=== PATIENT | female | born 1955 | race Caucasian/White ===

== ENCOUNTER 2017-04-16 20:57 | Inpatient (IN) | payer OTHER ==
[~2017-04-16] VITALS: Ht 170.2 cm; Wt 73.9 kg
[~2017-04-16 20:57] MED LIST: ACET325T9 PO; ACET500T33 PO; ASPI325T8 PO; BISA10SU55 RC; BUSP15TA PO; DEXT1DRO7 OU; DICL1TAB2 PO; DIVA500T2 PO; DULO60CA6 PO; FENT1PAT91 TP; FURO-69 PO; HALO2ORA PO; LORA0.5T PO; MAG30ORA2 PO; MAGN2400 PO; MELA3TAB2 PO; METH29OI TP; MINE3.5O12 OP; MULT-460 PO; NICO1PAT21 TD; NYST15CR TP; PANT40GR PO; PARO20TA3 PO; POLY15DR27 OU; PROM25SU32 RC; SERT50TA8 PO; SPIR25TA3 PO; TRAZ50TA15 PO
--- NOTE | 2017-04-16 21:25 | ED.ADGEN ---
Past History Past Medical History: Anxiety, Depression Adult General Chief Complaint Chief Complaint "... I don't know why they sent me here... ".." They say I am not being nice... " HPI HPI Patient is a 61 year old female who presents with above hx and complaints by [facility] for mental status changes.Pt. been a resident of [facility] since 09/17/14. Follows with Dr. Brizuela, and Dr. Ledezma. Pt. Accepted at [facility], for behavioral issues of refusing care, hallucination of snakes, thinks other pt. are after here, combative with staff and other patients , impossible to redirect disruptive behavior. Very Agitated and requires dosages of Ativan. Pt. Hx. of Multi Infarct dementia,CVA,s, insomnia, Bipolar , Epilepsy, HTN, Cardiac Hx., VT, Chronic pain, Falling, Anxiety, Depression, GERD, MRSA, Generalized Deconditioning, Gait disorder, Hx. of falls. Review of Systems Review of Systems Constitutional: Denies fever or chills [] Eyes: Denies change in visual acuity, redness, or eye pain [] HENT: Denies nasal congestion or sore throat [] Respiratory: Denies cough or shortness of breath [] Cardiovascular: No additional information not addressed in HPI [] GI: Denies abdominal pain, nausea, vomiting, bloody stools or diarrhea [] : Denies dysuria or hematuria [] Musculoskeletal: Denies back pain or joint pain [] Integument: Denies rash or skin lesions [] Neurologic: Denies headache, focal weakness or sensory changes [] Endocrine: Denies polyuria or polydipsia [] All other systems were reviewed and found to be within normal limits, except as documented in this note. Family History Family History Non-contributory Current Medications Current Medications Current Medications Medications (Trade) Dose Ordered Sig/Rudy Start Time Stop Time Status Last Admin Dose Admin Ceftriaxone Sodium 1 gm/ Sodium Chloride 50 ml @ 100 mls/hr 1X ONCE 04/17/17 01:30 04/17/17 03:03 DC 04/17/17 03:52 100 MLS/HR Ceftriaxone Sodium (Rocephin) 1 gm STK-MED ONCE 04/17/17 03:32 04/17/17 03:33 DC Cephalexin HCl (Keflex) 500 mg ONCE ONCE 04/17/17 02:00 04/17/17 03:04 DC Magnesium Hydroxide (Milk Of Magnesia) 2,400 mg 1X ONCE 04/17/17 01:30 04/17/17 03:03 DC Potassium Chloride (KCl Oral Soln) 40 meq 1X ONCE 04/17/17 01:30 04/17/17 03:03 DC Sodium Chloride 50 ml @ As Directed STK-MED ONCE 04/17/17 03:32 04/17/17 03:33 DC See Nursing for home meds Allergies Allergies Allergies Coded Allergies Type Severity Reaction Last Updated Verified Sulfa (Sulfonamide Antibiotics) Allergy Intermediate 06/17/15 Yes bacitracin Allergy Intermediate 06/17/15 Yes gabapentin Allergy Intermediate 06/17/15 Yes gentamicin Allergy Intermediate 06/17/15 Yes phenobarbital Allergy Intermediate 06/17/15 Yes Physical Exam Physical Exam Constitutional: no acute distress, non-toxic appearance. Argumentative HENT: Normocephalic, atraumatic, bilateral external ears normal, oropharynx moist, no oral exudates, nose normal. [] Eyes: PERRLA, EOMI, conjunctiva normal, no discharge. [] Neck: Normal range of motion, no tenderness, supple, no stridor. [] Cardiovascular:Heart rate regular rhythm, no murmur [] Lungs & Thorax: Bilateral breath sounds with apex with scattered wheezes on auscultation [] Abdomen: Bowel sounds normal, soft, no spleen or liver tenderness, no masses, no pulsatile masses. [] Large band of Ecchymosis Lt flank. Skin: Warm, dry, no erythema, no rash. Poor turgor. Back: No tenderness, no CVA tenderness. [] Extremities: No tenderness, no cyanosis, no clubbing, ROM intact, no edema. [ Arthritic changes Neurologic: Alert and oriented X 3,No gross motor or sensory function changes from her baseline.. [] Psychologic: Affect angry, judgement poor insight, confused, obvious memory issues, mood depressed, anxious Current Patient Data Lab Results Laboratory Tests Test 04/16/17 22:00 04/16/17 22:58 04/16/17 23:46 Urine Collection Type Unknown Urine Color Yellow Urine Clarity Hazy Urine pH 7.0 Urine Specific [place] 1.015 Urine Protein 30 mg/dl (NEG-TRACE) Urine Glucose (UA) Neg mg/dL (NEG) Urine Ketones (Stick) Trace mg/dL (NEG) Urine Blood Small (NEG) Urine Nitrite Neg (NEG) Urine Bilirubin Neg (NEG) Urine Urobilinogen Dipstick 2 mg/dL (0.2 mg/dL) Urine Leukocyte Esterase Large (NEG) Urine RBC 11-20 /HPF (0-2) Urine WBC >40 /HPF (0-4) Urine Squamous Epithelial Cells Mod /LPF Urine Bacteria Few /HPF (0-FEW) Urine Hyaline Casts Mod /HPF Urine Mucus Mod /LPF Urine Opiates Screen Pos (NEG) Urine Methadone Screen Neg (NEG) Urine Barbiturates Neg (NEG) Urine Phencyclidine Screen Neg (NEG) Urine Amphetamine/Methamphetamine Neg (NEG) Urine Benzodiazepines Screen Neg (NEG) Urine Cocaine Screen Neg (NEG) Urine Cannabinoids Screen Neg (NEG) Urine Ethyl Alcohol Neg (NEG) White Blood Count 5.8 x10^3/uL (4.0-11.0) Red Blood Count 4.95 x10^6/uL (3.50-5.40) Hemoglobin 13.5 g/dL (12.0-15.5) Hematocrit 41.3 % (36.0-47.0) Mean Corpuscular Volume 83 fL (79-100) Mean Corpuscular Hemoglobin 27 pg (25-35) Mean Corpuscular Hemoglobin Concent 33 g/dL (31-37) Red Cell Distribution Width 17.3 % (11.5-14.5) H Platelet Count 236 x10^3/uL (140-400) Neutrophils (%) (Auto) 52 % (31-73) Lymphocytes (%) (Auto) 35 % (24-48) Monocytes (%) (Auto) 11 % (0-9) H Eosinophils (%) (Auto) 2 % (0-3) Basophils (%) (Auto) 1 % (0-3) Neutrophils # (Auto) 3.0 x10^3uL (1.8-7.7) Lymphocytes # (Auto) 2.0 x10^3/uL (1.0-4.8) Monocytes # (Auto) 0.6 x10^3/uL (0.0-1.1) Eosinophils # (Auto) 0.1 x10^3/uL (0.0-0.7) Basophils # (Auto) 0.0 x10^3/uL (0.0-0.2) Sodium Level 141 mmol/L (136-145) Potassium Level 3.0 mmol/L (3.5-5.1) L Chloride Level 99 mmol/L (98-107) Carbon Dioxide Level 35 mmol/L (21-32) H Anion Gap 7 (6-14) Blood Urea Nitrogen 7 mg/dL (7-20) Creatinine 0.6 mg/dL (0.6-1.0) Estimated GFR (Cockcroft-Gault) 102.0 Glucose Level 81 mg/dL (70-99) Calcium Level 8.7 mg/dL (8.5-10.1) Magnesium Level 1.6 mg/dL (1.8-2.4) L Total Bilirubin 0.3 mg/dL (0.2-1.0) Direct Bilirubin 0.1 mg/dL (0.0-0.2) Aspartate Amino Transferase (AST) 14 U/L (15-37) L Alanine Aminotransferase (ALT) 11 U/L (14-59) L Alkaline Phosphatase 124 U/L (46-116) H Creatine Kinase 39 U/L (26-192) Creatine Kinase MB (Mass) 0.5 ng/mL (0.0-3.6) Creatine Kinase MB Relative Index 1.3 % (0-4) Troponin I Quantitative < 0.017 ng/mL (0-0.055) EA-Jts-K-Type Natriuretic Peptide 236 pg/mL (0-124) H Total Protein 7.1 g/dL (6.4-8.2) Albumin 2.5 g/dL (3.4-5.0) L Lipase 29 U/L (73-393) L Influenza Type A (Rapid) Negative (NEGATIVE) Influenza Type B (Rapid) Negative (NEGATIVE) Prothrombin Time 12.0 SEC (9.4-11.4) H Prothrombin Time INR 1.2 (0.9-1.1) H PTT 23 SEC (23-33) D-Dimer (Louisa) 0.37 mg/L (0.00-0.50) EKG EKG My interpretation EKG shows sinus rhythm at 77 bpm. There is left axis deviation and nonspecific contour abnormalities. No findings acute STEMI of contralateral changes.[] Radiology/Procedures Radiology/Procedures My interpretation of chest x-ray shows no acute cardiopulmonary changes. Does have degenerative joint changes. Does have blunting a left costophrenic angle. Does have clips from prior surgery in abdomen[] I interpretation CT of head shows no shift, mass, edema, bleed, or fracture. Does have findings of prior CVA with encephalomalacia of left temporal and external capsule. Does have DJD joint changes of neck. No obvious fracture or dislocation. She formal report when available. Course & Med Decision Making Course & Med Decision Making Pertinent Labs and Imaging studies reviewed. (See chart for details). Discussed presentation, testing and treatment plan with Dr. Andrews- will follow up pending labs, hypokalemia and hypomagnesium and UTI. Admit Dr. Aceves. -[facility] [] Final Impression Final Impression 1. Mental Status Change[] 2. Hypokalemia 3. Hypomagnesemia 4. Malnutrition-albumin 2.5 5. Depression history 6. History of anxiety 7. History of dementia 8. Urinary tract infection 9. History of aggressive behavior 10.Hx. Multi Infarct Dementia/ CVA's Problems: Dragon Disclaimer Dragon Disclaimer This electronic medical record was generated, in whole or in part, using a voice recognition dictation system. DELMAR STEIN MD Apr 16, 2017 21:25
[2017-04-16] MEDS ORDERED: IV NORMAL SALINE 1,000ML 1,000 ML IV SCH (21:45)
[2017-04-16] MEDS ORDERED: BALS60OI TP (22:25)
[2017-04-16] MEDS ORDERED: ASPI81TA50 PO (22:25)
[2017-04-16] MEDS ORDERED: FAMO20TA5 PO (22:25)
[2017-04-16] MEDS ORDERED: SUCR1TAB35 PO (22:25)
[2017-04-16] MEDS ORDERED: FURO-68 PO (22:25)
[2017-04-16] MEDS ORDERED: IPRA3AMP NEB (22:25)
[2017-04-16] MEDS ORDERED: [UNRECOGNIZED DRUG - CODE] LEFTEYE (22:25)
[2017-04-16] MEDS ORDERED: ARIP5TAB13 PO (22:25)
[2017-04-16] MEDS ORDERED: ERGO500027 PO (22:25)
[2017-04-16] MEDS ORDERED: AMIN887L PO (22:25)
[2017-04-16] MEDS ORDERED: FENT1PAT15 TD (22:25)
[2017-04-16] MEDS ORDERED: DIGO125T PO (22:25)
[2017-04-16] MEDS ORDERED: CLOP75TA57 PO (22:25)
[2017-04-16] MEDS ORDERED: ALBU8.5H8 INH (22:25)
[2017-04-16] MEDS ORDERED: HYDR25CA75 PO (22:25)
[2017-04-16] MEDS ORDERED: OXYC10TA PO (22:25)
[2017-04-16] MEDS ORDERED: SENN-79 PO (22:25)
[2017-04-16] MEDS ORDERED: MICO14CR TP (22:25)
[2017-04-16] MEDS ORDERED: OXYC5TAB95 PO (22:25)
[2017-04-16] MEDS ORDERED: METO-239 PO (22:25)
[2017-04-16] MEDS ORDERED: ESCITALOPRAM OX10 MG PO (22:25)
[2017-04-16] MEDS ORDERED: MAGN400O7 PO (22:25)
[2017-04-16] MEDS ORDERED: ZOLP12.52 PO (22:25)
[2017-04-16] MEDS ORDERED: POTA20TA4 PO (22:25)
[2017-04-16] MEDS ORDERED: OXYB5TAB7 PO (22:25)
--- NOTE | 2017-04-16 22:37 | EKG ---
[address] [address] Test Date: 2017-04-16 Test Time: 22:34:05 Pat Name: DEVORAH SIMMS Department: Room: Gender: F Administrative Receptionist: MICHELLE : [id number] Requested By: DELMAR STEIN Order Number: [id number] Reading MD: Measurements Intervals [place] Rate: 77 P: 37 NM: 150 QRS: -54 QRSD: 86 T: 44 QT: 406 QTc: 461 Interpretive Statements SINUS RHYTHM ABNORMAL LEFT AXIS DEVIATION QRS(T) CONTOUR ABNORMALITY CONSISTENT WITH INFERIOR INFARCT PROBABLY OLD ABNORMAL ECG RI6.01 Compared to ECG 06/17/2015 06:24:49 No significant changes
[2017-04-16 22:38] LABS: AMPHETAMINE/METHAMPHETAMINE NEG (NEG); BARBITURATES NEG (NEG); BENZODIAZEPINES NEG (NEG); CANNABINOIDS NEG (NEG); COCAINE NEG (NEG); METHADONE NEG (NEG); OPIATES POS (NEG); PHENCYCLIDINE NEG (NEG)
[2017-04-16 22:54] LABS: CLARITY,URINE HAZY; COLOR,URINE YELLOW
[2017-04-16 22:55] LABS: BACTERIA,URINE FEW /HPF (0-FEW); BILIRUBIN,URINE NEG (NEG); GLUCOSE,URINE NEG (NEG); NITRITE,URINE NEG (NEG); SQUAMOUS EPITHELIAL CELL,UR MOD /LPF; UROBILINOGEN,URINE 2 mg/dL (0.2 mg/dL); WBC,URINE >40 /HPF (0-4)
[2017-04-16 22:56] LABS: HYALINE CASTS, URINE MOD /HPF
[2017-04-16 23:26] LABS: BASO % 1 % (0-3); EOS # 0.1 x10^3/uL (0.0-0.7); EOS % 2 % (0-3); HEMATOCRIT 41.3 % (36.0-47.0); HEMOGLOBIN 13.5 g/dL (12.0-15.5); LYMPH % 35 % (24-48); MEAN CORPUSCULAR HEMOGLOBIN 27 pg (25-35); MEAN CORPUSCULAR HGB CONC 33 g/dL (31-37); MEAN CORPUSCULAR VOLUME 83 fL (79-100); MONO # 0.6 x10^3/uL (0.0-1.1); MONO % 11 % (0-9); NEUT % 52 % (31-73); PLATELET COUNT 236 x10^3/uL (140-400); RED BLOOD COUNT 4.95 x10^6/uL (3.50-5.40); RED CELL DISTRIBUTION WIDTH 17.3 % (11.5-14.5); WHITE BLOOD COUNT 5.8 x10^3/uL (4.0-11.0)
[2017-04-16 23:35] LABS: INFLUENZA A PATIENT NEGATIVE (NEGATIVE); INFLUENZA B PATIENT NEGATIVE (NEGATIVE)
[2017-04-16 23:43] LABS: ALBUMIN 2.5 g/dL (3.4-5.0); CALCIUM 8.7 mg/dL (8.5-10.1); CREATININE 0.6 mg/dL (0.6-1.0); DIRECT BILIRUBIN 0.1 mg/dL (0.0-0.2); MAGNESIUM 1.6 mg/dL (1.8-2.4); TOTAL BILIRUBIN 0.3 mg/dL (0.2-1.0); TOTAL PROTEIN 7.1 g/dL (6.4-8.2)
--- NOTE | 2017-04-16 23:53 | RAD ---
CT HEAD AND CERVICAL SPINE WO dated 04/16/2017 10:07 PM Indication:Falling Comparison: June 17, 2015 CT head. Technique: One or more of the following individualized dose reduction techniques were utilized for this examination: 1. Automated exposure control 2. Adjustment of the mA and/or kV according to patient size 3. Use of iterative reconstruction technique Findings CT head: Again seen is encephalomalacia in the left temporal lobe. There is a lucency in the region of the left external capsule. Prominence of the sulci extends superiorly in the left sylvian fissure. These findings are unchanged. There is been a prior craniotomy the left frontal and temporal region . No evidence of acute infarction or hemorrhage is seen. There is mild lucency in the deep cerebral white matter most consistent with chronic ischemic change. There is unchanged prominence of the left lateral ventricle from atrophy. The basal cisterns are well maintained. There is no shift of the midline structures. Bone windows show no acute fracture. IMPRESSION CT head: No acute intracranial abnormality is seen. There is unchanged encephalomalacia in the left temporal lobe and region of the left external capsule. There are postoperative changes in this area. Findings CT of the cervical spine: No cervical spine fracture or subluxation is seen. There degenerative changes at C5-6 with mild posterior osteophyte formation and spurs arising from the right uncovertebral joint. These are causing right foraminal stenosis. The other levels are unremarkable. The paraspinous soft tissues are normal. IMPRESSION: No cervical spine fracture or subluxation seen. There are mild degenerative changes. Electronically signed by: Melvina Ramirez MD (04/16/2017 11:50 PM) [facility] [place] [facility] [place]
[2017-04-17] MEDS ORDERED: POTASSIUM CHLORIDE 20 MEQ/15 ML ORAL LIQUID. PO ONE ×2 (01:15→01:30)
[2017-04-17] MEDS ORDERED: MAGNESIUM HYDROXIDE 2,400 MG/30 ML ORAL.SUSP. PO ONE ×2 (01:15→01:30)
[2017-04-17] MEDS ORDERED: CEPHALEXIN 250 MG CAPSULE PO ONE (02:00)
[2017-04-17] MEDS ORDERED: IV NORMAL SALINE 50ML 50 ML ONE (03:32)
[2017-04-17] MEDS ORDERED: cefTRIAXone SODIUM 1 GM VIAL IV ONE (03:32)
[2017-04-17 06:03] VITALS: BP 96/55
[2017-04-17 06:22] LABS: VAL ACID 70 mcg/mL (50-100)
[2017-04-17] MEDS ORDERED: LORazepam 0.5 MG TABLET PO PRN (07:15)
[2017-04-17] MEDS ORDERED: MAGNESIUM HYDROXIDE 2,400 MG/30 ML ORAL.SUSP. PO PRN (07:45)
[2017-04-17] MEDS ORDERED: MICONAZOLE NITRATE 2% TOPICAL CREAM 14GM TUBE. TP PRN (07:45)
[2017-04-17] MEDS ORDERED: fentaNYL 25MCG/HR 1 PATCH PATCH TD SCH (07:45)
[2017-04-17] MEDS ORDERED: FUROSEMIDE 40 MG TABLET PO PRN (07:45)
[2017-04-17] MEDS ORDERED: ACETAMINOPHEN 325 MG TABLET PO PRN (07:45)
[2017-04-17] MEDS ORDERED: IPRATRPIUM/ALBUTEROL 0.5/2.5MG 3 ML NEBU. NEB PRN (07:45)
[2017-04-17] MEDS ORDERED: POTASSIUM CHLORIDE 20 MEQ TABLET.ER. PO SCH (08:00)
[2017-04-17] MEDS ORDERED: POLYVINYL ALCOHOL 1.4% OPHTH SOLUTION 15ML BOTTLE. OS PRN ×2 (08:00→14:31)
[2017-04-17] MEDS ORDERED: ALBUTEROL SULFATE 2.5 MG/3 ML NEBU. NEB PRN (08:00)
--- NOTE | 2017-04-17 08:34 | RAD ---
Pelvis one view. History: Fall Supine view was taken of the pelvis. There is no acute pelvic fracture. Hips appear unremarkable without definite fracture. There is mild degenerative change in the lower lumbar spine. Impression: 1. No pelvic fracture noted.
--- NOTE | 2017-04-17 08:35 | RAD ---
AP chest History: Fall AP view was taken of the chest. There is linear atelectasis in the left lung base. Heart is normal in size. There is thoracolumbar scoliosis. There are no other infiltrates. Impression: 1. Left base linear atelectasis.
[2017-04-17] MEDS ORDERED: NICOTINE 14MG PATCH. TD SCH (09:00)
[2017-04-17] MEDS: oxyCODONE IR 5 MG TABLET PO SCH ×4 (09:00→21:49)
[2017-04-17] MEDS: SUCRALFATE 1 GM TABLET. PO SCH ×5 (09:00→21:46)
[2017-04-17] MEDS: METOPROLOL SUCC 24HR ER 25 MG TAB.ER.24H. PO SCH (09:00)
[2017-04-17 10:35] VITALS: BP 96/63
--- NOTE | 2017-04-17 12:30 | HP ---
ADMIT DATE: 04/17/2017 REASON FOR ADMISSION TO SENIOR BEHAVIORAL UNIT: This is a 61-year-old female who came from [facility] where she had been on hospice. The nurses' notes report that she had increased behaviors seeing snakes, cats, and bugs in her room. Keep trying to stand, not wanting to use the wheelchair and having delusions. PAST MEDICAL HISTORY: Chronic pain, chronic use of narcotics, muscle weakness, major depressive disorder, epilepsy, primary cerebral infarct, anxiety, history of a brain tumor which was removed 10 years ago. Other problems also include insomnia, vitamin D deficiency, bipolar disorder. She has a history of a cardiac arrest in 12/2016, ventricular tachycardia in 12/2016, paroxysmal atrial fibrillation, dilated cardiomyopathy, acute respiratory failure, also has a history of pneumonia, irritable bowel, spinal stenosis, neuropathy, overactive bladder, COPD. ALLERGIES: SULFA, BACITRACIN, GABAPENTIN, GENTAMICIN, PHENOBARBITAL. MEDICATIONS: Reviewed. Of note, the patient is on a large amount of narcotics including Ambien, lorazepam p.r.n., scheduled oxycodone p.r.n. and fentanyl patch. SOCIAL HISTORY: Positive tobacco. Resides in a nursing facility. REVIEW OF SYSTEMS: The patient was requesting pain medication. She has been up all night in the Emergency Room and is in bed. OBJECTIVE: VITAL SIGNS: Blood pressure 96/63, pulse 86, pulse ox was 85% this morning on 2 liters, now 93% on 2 liters, so definitely needs oxygen during the day. GENERAL: Her hair is thinning. Color is pale. She is in a debilitated state. CHEST: Her lungs were clear. CARDIOVASCULAR: Regular rhythm and rate. ABDOMEN: Soft, nontender. EXTREMITIES: Trace edema. Could not assess the rest of neurologic status were her gait. LABORATORY DATA: Iron is deficient; magnesium was 1.6 ____ liver function tests, TSH was normal. B12, vitamin D is pending. Potassium was 3. ASSESSMENT: 1. A 61-year-old with a reported increased behaviors and delusions and hallucinations with no history of dementia. 2. Major depressive disorder. 3. Polypharmacy with multiple sensorium altering medications including Ambien, oxycodone with fentanyl, and lorazepam. 4. Iron deficiency 5. Previous hospice status. 6. Hypokalemia. 7. Severe Protein-calorie malnutrition. 8. Urinary tract infection. 9. Chronic hypoxemic respiratory failure PLAN: Received a dose of ceftriaxone in the Emergency Room. We will replace her iron. The patient is a DNR. Needs daily oxygen during the day. Avoid excessive pain medications and excessive oversedating the patient. ART BAJWA DO DR: GREGORY/brandon JOB#: [id number] / [id number]
[2017-04-17] MEDS: MULTIVITAMIN with MINERAL TABLET. PO SCH (13:09)
[2017-04-17] MEDS: CEPHALEXIN 250 MG CAPSULE PO SCH ×3 (13:09→21:46)
[2017-04-17] MEDS: FAMOTIDINE 20 MG TABLET PO SCH ×2 (13:09→21:46)
[2017-04-17] MEDS: ASPIRIN ENTERIC COATED 81 MG TABLET.DR. PO SCH (13:09)
[2017-04-17] MEDS: MAGNESIUM OXIDE 400 MG TABLET PO SCH (13:09)
[2017-04-17] MEDS: CLOPIDOGREL BISULFATE 75 MG TABLET PO SCH (13:09)
[2017-04-17] MEDS: ARIPiprazole 5 MG TABLET PO SCH (13:10)
[2017-04-17] MEDS: OXYBUTYNIN CHLORIDE 5 MG TABLET PO SCH (13:10)
[2017-04-17] MEDS: CITALOPRAM 20 MG TABLET. PO SCH (13:10)
[2017-04-17] MEDS: NICOTINE 14MG PATCH. TD SCH (13:11)
[2017-04-17] MEDS: DIGOXIN 125 MCG TABLET PO SCH (13:12)
[2017-04-17] MEDS: POTASSIUM CHLORIDE 20 MEQ TABLET.ER. PO SCH (13:14)
[2017-04-17 15:09] LABS: T3 TOTAL 112 ng/dL (71-180); THYROXINE 7.2 ug/dL (4.5-12.0)
[2017-04-17 16:11] VITALS: BP 103/68
[2017-04-17 16:21] LABS: HEMOGLOBIN A1C 4.8 % (4.8-5.6)
--- NOTE | 2017-04-17 21:02 | PDOC ---
Exam Note: Michi Note: Please also refer to the separate dictated note~for this date of service dictated separately.~Patient seen individually. Discussed the patient with Nursing staff reviewed the chart.~Reviewed interim history and current functioning. Reviewed vital signs,~Labs/ Radiology~and current medications noted below. Continue current treatment with the changes noted in the dictated addendum note Assessment: Vital Signs: Vital Signs Date Time Temp Pulse Resp B/P (MAP) Pulse Ox O2 Delivery O2 Flow Rate FiO2 04/17/17 17:32 18 91 04/17/17 16:11 98.2 88 103/68 (80) 2.0 04/17/17 10:35 Nasal Cannula I&O Intake and Output 04/17/17 07:00 Intake Total 1050 ml Balance 1050 ml IV Total 1050 ml Labs: Laboratory Tests Test 04/16/17 22:00 04/16/17 22:58 04/16/17 23:46 Urine Collection Type Unknown Urine Color Yellow Urine Clarity Hazy Urine pH 7.0 Urine Specific [place] 1.015 Urine Protein 30 mg/dl (NEG-TRACE) Urine Glucose (UA) Neg mg/dL (NEG) Urine Ketones (Stick) Trace mg/dL (NEG) Urine Blood Small (NEG) Urine Nitrite Neg (NEG) Urine Bilirubin Neg (NEG) Urine Urobilinogen Dipstick 2 mg/dL (0.2 mg/dL) Urine Leukocyte Esterase Large (NEG) Urine RBC 11-20 /HPF (0-2) Urine WBC >40 /HPF (0-4) Urine Squamous Epithelial Cells Mod /LPF Urine Bacteria Few /HPF (0-FEW) Urine Hyaline Casts Mod /HPF Urine Mucus Mod /LPF Urine Opiates Screen Pos (NEG) Urine Methadone Screen Neg (NEG) Urine Barbiturates Neg (NEG) Urine Phencyclidine Screen Neg (NEG) Urine Amphetamine/Methamphetamine Neg (NEG) Urine Benzodiazepines Screen Neg (NEG) Urine Cocaine Screen Neg (NEG) Urine Cannabinoids Screen Neg (NEG) Urine Ethyl Alcohol Neg (NEG) White Blood Count 5.8 x10^3/uL (4.0-11.0) Red Blood Count 4.95 x10^6/uL (3.50-5.40) Hemoglobin 13.5 g/dL (12.0-15.5) Hematocrit 41.3 % (36.0-47.0) Mean Corpuscular Volume 83 fL (79-100) Mean Corpuscular Hemoglobin 27 pg (25-35) Mean Corpuscular Hemoglobin Concent 33 g/dL (31-37) Red Cell Distribution Width 17.3 % (11.5-14.5) H Platelet Count 236 x10^3/uL (140-400) Neutrophils (%) (Auto) 52 % (31-73) Lymphocytes (%) (Auto) 35 % (24-48) Monocytes (%) (Auto) 11 % (0-9) H Eosinophils (%) (Auto) 2 % (0-3) Basophils (%) (Auto) 1 % (0-3) Neutrophils # (Auto) 3.0 x10^3uL (1.8-7.7) Lymphocytes # (Auto) 2.0 x10^3/uL (1.0-4.8) Monocytes # (Auto) 0.6 x10^3/uL (0.0-1.1) Eosinophils # (Auto) 0.1 x10^3/uL (0.0-0.7) Basophils # (Auto) 0.0 x10^3/uL (0.0-0.2) Sodium Level 141 mmol/L (136-145) Potassium Level 3.0 mmol/L (3.5-5.1) L Chloride Level 99 mmol/L (98-107) Carbon Dioxide Level 35 mmol/L (21-32) H Anion Gap 7 (6-14) Blood Urea Nitrogen 7 mg/dL (7-20) Creatinine 0.6 mg/dL (0.6-1.0) Estimated GFR (Cockcroft-Gault) 102.0 Glucose Level 81 mg/dL (70-99) Hemoglobin A1c 4.8 % (4.8-5.6) Calcium Level 8.7 mg/dL (8.5-10.1) Magnesium Level 1.6 mg/dL (1.8-2.4) L Iron Level 38 ug/dL (50-170) L Total Iron Binding Capacity 306 ug/dL (250-450) Iron Saturation 12 % (15-34) L Total Bilirubin 0.3 mg/dL (0.2-1.0) Direct Bilirubin 0.1 mg/dL (0.0-0.2) Aspartate Amino Transferase (AST) 14 U/L (15-37) L Alanine Aminotransferase (ALT) 11 U/L (14-59) L Alkaline Phosphatase 124 U/L (46-116) H Creatine Kinase 39 U/L (26-192) Creatine Kinase MB (Mass) 0.5 ng/mL (0.0-3.6) Creatine Kinase MB Relative Index 1.3 % (0-4) Troponin I Quantitative < 0.017 ng/mL (0-0.055) KZ-[id number]-H-Type Natriuretic Peptide 236 pg/mL (0-124) H Total Protein 7.1 g/dL (6.4-8.2) Albumin 2.5 g/dL (3.4-5.0) L Triglycerides Level 154 mg/dL (0-150) H Cholesterol Level 161 mg/dL (0-200) LDL Cholesterol, Calculated 78 mg/dL (0-100) VLDL Cholesterol, Calculated 30 mg/dL (0-40) Non-HDL Cholesterol Calculated 108 mg/dL (0-129) HDL Cholesterol 53 mg/dL (40-60) Cholesterol/HDL Ratio 3.0 Lipase 29 U/L (73-393) L Thyroid Stimulating Hormone (TSH) 3.308 uIU/mL (0.358-3.740) Thyroxine (T4) 7.2 ug/dL (4.5-12.0) Total Triiodothyronine (TT3) 112 ng/dL (71-180) Valproic Acid Level 70 mcg/mL (50-100) Valproic Acid Last Dose Date Unknown Valproic Acid Last Dose Time Unknown Rapid Plasma Reagin Pending Influenza Type A (Rapid) Negative (NEGATIVE) Influenza Type B (Rapid) Negative (NEGATIVE) Prothrombin Time 12.0 SEC (9.4-11.4) H Prothrombin Time INR 1.2 (0.9-1.1) H PTT 23 SEC (23-33) D-Dimer (Louisa) 0.37 mg/L (0.00-0.50) Current Medications: Meds: Current Medications Sodium Chloride 1,000 ml @ 1,000 mls/hr Q1H IV Last administered on 04/16/17at 03:52; Start 04/16/17 at 21:45; Stop 04/16/17 at 22:44; Status DC Potassium Chloride (KCl Oral Soln) 40 meq 1X ONCE PO Last administered on 04/17at 03:52; Start 3/11/18 at 01:15; Stop 04/17/17 at 03:03; Status DC Magnesium Hydroxide (Milk Of Magnesia) 2,400 mg 1X ONCE PO Last administered on 04/17/17at 03:52; Start 04/17/17 at 01:15; Stop 04/17/17 at 03:03; Status DC Ceftriaxone Sodium 1 gm/ Sodium Chloride 50 ml @ 100 mls/hr 1X ONCE IV Last administered on 04/17/17at 03:52; Start 04/17/17 at 01:30; Stop 04/17/17 at 03:03 ; Status DC Magnesium Hydroxide (Milk Of Magnesia) 2,400 mg 1X ONCE PO ; Start 04/17/17 at 01:30; Stop 04/17/17 at 03:03; Status DC Potassium Chloride (KCl Oral Soln) 40 meq 1X ONCE PO ; Start 04/17/17 at 01:30 ; Stop 04/17/17 at 03:03; Status DC Cephalexin HCl (Keflex) 500 mg ONCE ONCE PO ; Start 04/17/17 at 02:00; Stop 12/25 at 03:04; Status DC Sodium Chloride 50 ml @ As Directed STK-MED ONCE .ROUTE ; Start 04/17/17 at 03: 32; Stop 04/17/17 at 03:33; Status DC Ceftriaxone Sodium (Rocephin) 1 gm STK-MED ONCE IV ; Start 04/17/17 at 03:32; Stop 04/17/17 at 03:33; Status DC Nicotine (Nicoderm Cq 14mg) 1 patch DAILY TD ; Start 04/17/17 at 09:00; Stop 12/25 at 09:00; Status DC Aripiprazole (Abilify) 5 mg DAILY PO Last administered on 04/17/17at 13:10; Start 04/17/17 at 09:00 Hydroxyzine Pamoate (Vistaril) 25 mg QHS PO ; Start 04/17/17 at 21:00 Lorazepam (Ativan) 0.5 mg PRN Q12HR PRN PO ANXIETY / AGITATION; Start 04/17/17 at 07:15 Divalproex Sodium (Depakote Er) 1,000 mg QHS PO ; Start 04/17/17 at 21:00 Citalopram Hydrobromide (CeleXA) 20 mg DAILY PO Last administered on 04/17/17at 13:10; Start 04/17/17 at 09:00 Zolpidem Tartrate (Ambien) 10 mg PRN QHS PRN PO INSOMNIA; Start 04/17/17 at 07: 30 Nicotine (Nicoderm Cq 14mg) 1 patch DAILY TD Last administered on 04/17/17at 13: 11; Start 04/17/17 at 09:00 Cephalexin HCl (Keflex) 500 mg TID PO Last administered on 04/17/17at 15:29; Start 04/17/17 at 09:00; Stop 04/22/17 at 08:59 Potassium Chloride (Klor-Con) 20 meq DAILYWBKFT PO ; Start 04/17/17 at 08:00; Status UNV Magnesium Oxide (Magnesium Oxide) 400 mg DAILY PO Last administered on at 13:09; Start 04/17/17 at 09:00 Acetaminophen (Tylenol) 325 mg PRN Q4HRS PRN PO PAIN / TEMP; Start 04/17/17 at 07:45 Albuterol Sulfate (Ventolin) 2.5 mg PRN Q6HRS PRN NEB SHORTNESS OF BREATH; Start 04/17/17 at 08:00 Aspirin (Aspirin Enteric Coated) 81 mg DAILY PO Last administered on 04/17/17at 13:09; Start 04/17/17 at 09:00 Clopidogrel Bisulfate (Plavix) 75 mg DAILY PO Last administered on 04/17/17at 13 :09; Start 04/17/17 at 09:00 Digoxin (Lanoxin) 125 mcg DAILY PO Last administered on 04/17/17at 13:12; Start 04/17/17 at 09:00 Famotidine (Pepcid) 20 mg BID PO Last administered on 04/17/17at 13:09; Start at 09:00 Fentanyl (Duragesic 25mcg/ Hr) 1 patch Q72H TD ; Start 04/17/17 at 07:45; Status Cancel Furosemide (Lasix) 40 mg PRN DAILY PRN PO Weight gain >2# in 24 hrs ; Start 12/25 at 07:45 Albuterol/ Ipratropium (Duoneb) 3 ml PRN Q6HRS PRN NEB Asthma; Start 04/17/17 at 07:45 Magnesium Hydroxide (Milk Of Magnesia) 2,400 mg PRN Q24HRS PRN PO CONSTIPATION ; Start 04/17/17 at 07:45 Metoprolol Succinate (Toprol Xl) 12.5 mg DAILY PO ; Start 04/17/17 at 09:00 Miconazole Nitrate (Monistat-Derm) 1 silver PRN QID PRN TP Excoriation to Buttocks /Groin; Start 04/17/17 at 07:45 Oxybutynin Chloride (Ditropan) 5 mg DAILY PO Last administered on 04/17/17at 13: 10; Start 04/17/17 at 09:00 Oxycodone HCl (Roxicodone) 5 mg QID PO Last administered on 04/17/17at 17:32; Start 04/17/17 at 09:00 Potassium Chloride (Klor-Con) 20 meq DAILY PO Last administered on 04/17/17at 13 :14; Start 04/17/17 at 09:00 Sennosides (Senna) 17.2 mg QHS PO ; Start 04/17/17 at 21:00 Sucralfate (Carafate) 1 gm QID PO Last administered on 04/17/17at 17:33; Start 04/17/17 at 09:00 Artificial Tears (Artificial Tears) 1 drop PRN QID PRN OS DRY EYE; Start at 08:00; Stop 04/17/17 at 14:31; Status DC Vitamin D (Vitamin D3) 50,000 unit QTH PO ; Start 04/21/17 at 16:00 Multivitamins/ Calcium (Thera-M Plus) 1 tab DAILY PO Last administered on at 13:09; Start 04/17/17 at 09:00 Artificial Tears (Artificial Tears) 1 drop PRN QID PRN OS DRY EYE Last administered on 04/17/17at 17:33; Start 04/17/17 at 14:31 Fentanyl (Duragesic 25mcg/ Hr) 1 patch Q72H TD ; Start 04/18/17 at 09:00 Active Scripts Active Reported Senna (Sennosides) 8.6 Mg Tablet 17.2 Mg PO QHS Pro-Stat Liquid (Amino Acids/Protein Hydrolys) 887 Ml Liquid 60 Ml PO BID Klor-Con M20 (Potassium Chloride) 20 Meq Tab.er.prt 20 Meq PO DAILY Plavix (Clopidogrel Bisulfate) 75 Mg Tablet 75 Mg PO DAILY Oxycodone Hcl 5 Mg Tablet 5 Mg PO QID Oxycodone Hcl 10 Mg Tablet 10 Mg PO PRN Q4HRS PRN Oxybutynin Chloride 5 Mg Tablet 5 Mg PO DAILY Milk Of Magnesia (Magnesium Hydroxide) 400 Mg/5 Ml Oral.susp 2,400 Mg PO PRN Q24HRS PRN Antifungal Cream (Miconazole Nitrate) 14 Gm Cream..g. 1 Silver TP PRN QID PRN Metoprolol Succinate ( Xl ) (Metoprolol Succinate) 25 Mg Tab.er.24h 12.5 Mg PO DAILY Lasix (Furosemide) 40 Mg Tablet 40 Mg PO PRN DAILY PRN Hydroxyzine Pamoate 25 Mg Capsule 25 Mg PO QHS FENTANYL 25mcg/hr (Fentanyl) 1 Each Patch.td72 1 Patch TD Q72H Famotidine 20 Mg Tablet 20 Mg PO BID Escitalopram Oxalate 10 Mg Tablet 10 Mg PO DAILY Vitamin D2 (Ergocalciferol (Vitamin D2)) 50,000 Unit Capsule 50,000 Unit PO QTH Duoneb 0.5-3(2.5) Mg/3 Ml (Albuterol/Ipratropium) 3 Ml Ampul.neb 3 Ml NEB PRN Q6HRS PRN Digoxin 125 Mcg Tablet 125 Mcg PO DAILY Restore Tears (Carboxymethylcellulose Sodium) 30 Ml Drops 1 Drop LEFTEYE PRN QID PRN Carafate (Sucralfate) 1 Gm Tablet 1 Gm PO QID Venelex Ointment (Balsam Adal/[place] Oil) 60 Gm Oint...g. 1 Silver TP PRN QID PRN Aspir-Low (Aspirin) 81 Mg Tablet.dr 81 Mg PO DAILY Abilify (Aripiprazole) 5 Mg Tablet 5 Mg PO DAILY Ambien Cr (Zolpidem Tartrate) 12.5 Mg Tab.mphase 12.5 Mg PO QHS PRN Proair Hfa Inhaler (Albuterol Sulfate) 8.5 Gm Hfa.aer.ad 2 Puff INH PRN Q6HRS PRN Tylenol (Acetaminophen) 325 Mg Tablet 325 Mg PO PRN Q4HRS PRN MDD 3000mg Lorazepam 0.5 Mg Tablet 0.5 Mg PO PRN Q12HR PRN Multiple Vitamin (Multivitamin With Minerals) 1 Each Tablet 1 Tab PO DAILY Depakote (Divalproex Sodium) 500 Mg Tablet. 1,000 Mg PO QHS I have reviewed the current psychotropics carefully including drug interactions. Risk benefit ratio favors no change other than as noted in my dictated progress note. Diagnosis: Problems: (1) Major depression (2) Anxiety disorder (3) Psychotic depression (4) Major depressive disorder, recurrent episode (5) Mild cognitive impairment LEON PARHAM MD Apr 17, 2017 21:01
[2017-04-17] MEDS: DIVALPROEX ER 500 MG TAB.ER.24H PO SCH (21:49)
[2017-04-17] MEDS: SENNOSIDES 8.6 MG TABLET PO SCH (21:49)
[2017-04-17] MEDS: hydrOXYzine PAMOATE 25 MG CAPSULE PO SCH (21:49)
[2017-04-18] MEDS: ZOLPIDEM 5 MG TABLET. PO PRN ×2 (00:44→22:29)
[2017-04-18 05:42] VITALS: BP 94/63
[2017-04-18] MEDS: METOPROLOL SUCC 24HR ER 25 MG TAB.ER.24H. PO SCH (09:00)
[2017-04-18] MEDS: MULTIVITAMIN with MINERAL TABLET. PO SCH (09:26)
[2017-04-18] MEDS: OXYBUTYNIN CHLORIDE 5 MG TABLET PO SCH (09:26)
[2017-04-18] MEDS: MAGNESIUM OXIDE 400 MG TABLET PO SCH (09:26)
[2017-04-18] MEDS: ARIPiprazole 5 MG TABLET PO SCH (09:26)
[2017-04-18] MEDS: DIGOXIN 125 MCG TABLET PO SCH (09:26)
[2017-04-18] MEDS: POTASSIUM CHLORIDE 20 MEQ TABLET.ER. PO SCH (09:27)
[2017-04-18] MEDS: ASPIRIN ENTERIC COATED 81 MG TABLET.DR. PO SCH (09:27)
[2017-04-18] MEDS: CLOPIDOGREL BISULFATE 75 MG TABLET PO SCH (09:27)
[2017-04-18] MEDS: SUCRALFATE 1 GM TABLET. PO SCH ×6 (09:27→20:54)
[2017-04-18] MEDS: CEPHALEXIN 250 MG CAPSULE PO SCH ×3 (09:27→20:33)
[2017-04-18] MEDS: CITALOPRAM 20 MG TABLET. PO SCH (09:27)
[2017-04-18] MEDS: FAMOTIDINE 20 MG TABLET PO SCH ×3 (09:27→20:54)
[2017-04-18] MEDS: NICOTINE 14MG PATCH. TD SCH (09:28)
[2017-04-18] MEDS: oxyCODONE IR 5 MG TABLET PO SCH ×4 (09:30→20:35)
[2017-04-18] MEDS: fentaNYL 25MCG/HR 1 PATCH PATCH TD SCH (09:31)
[2017-04-18 16:04] VITALS: BP 106/74
--- NOTE | 2017-04-18 18:32 | HP ---
ADMIT DATE: 04/17/2017 This is late entry, 04/17/2017, covers the elements not covered in my initial note, 04/17/2017. SUBJECTIVE: I met with the patient evening of 04/17/2017. Discussed with the nursing staff several times prior to the patient's admission and since admission to gather referral information from [facility] and her primary care physician, Dr. Ray Brizuela and also with the nursing staff the evening of 04/17/2017. Reviewed current and past records. IDENTIFYING DATA: The patient is a 61-year-old female referred to us from [facility] by Dr. Ray Brizuela. Her primary care physician on account of worsening symptoms of depression, refusing cares, having active hallucinations of snakes, etc. She thinks her peers are going through her stuff. She has been paranoid, combative, has a prior diagnosis of bipolar disorder, has been increasingly depressed, psychotic, and also has a diagnosis of personality disorder. She has failed outpatient psychiatric interventions resulting in this referral. CHIEF COMPLAINT: "Get close here. I cannot talk very loud." The patient is quite paranoid, suspicious, and had to sit very close to her because she felt people were trying to over hear what she was saying. HISTORY OF PRESENT ILLNESS: The patient has a history of bipolar disorder with periods of elation, racing thoughts alternating with being depressed. She has been increasingly depressed in the recent past, quite psychotic, as noted above, hallucinating about snakes and bugs in her bed, thought the oxygen tubing was a snake. She is delusional, thinks someone stole her wallet, combative with the staff. "I will take your ass if you do not get the hell out of my room." No suicidal or homicidal ideation. PAST PSYCHIATRIC HISTORY: As above. MEDICAL HISTORY: UA on 04/16/2017, reflex to a culture, received Rocephin in the ER. CODE STATUS: DNR. ALLERGIES: SULFA, BACTRIM, NEURONTIN, DILANTIN, Gentamicin, PHENOBARBITAL. 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 DIET: Regular. CURRENT PSYCHOTROPICS: Abilify 5 mg a day, Depakote delayed release 1000 mg at bedtime for seizures and mood disorder, Lexapro 10 mg a day, hydroxyzine 25 mg at bedtime, Ambien CR 12.5 mg at bedtime, Ativan p.r.n. FAMILY HISTORY: Noncontributory. SOCIAL HISTORY: No alcohol, drug abuse, physical, sexual or elder abuse history is noted. Not known to be a perpetrator. REVIEW OF SYSTEMS: Ambulation impaired, in wheelchair. No CV, , pulmonary, eye, ENT system symptoms on review. MENTAL STATUS EXAMINATION: Reasonably oriented. Speech, low in volume, often responses monosyllabic. Abstraction fair, computation impaired, language function intact, attention span short. Mood and affect somewhat labile, quite paranoid, psychotic. No active suicidal or homicidal ideation. Attention span short. Intellect average. Insight limited, judgment marginal. IMPRESSION: Bipolar 1 disorder, depressed with psychotic features; major depressive disorder with psychotic features; anxiety disorder, unspecified; impulse control disorder, unspecified. Rest as above. PLAN: Admit to Geropsychiatry Unit at [facility]. I will see the patient daily individually from a psychiatric standpoint, medical followup per Dr. Andrews/Dr. Lujan. Check a valproic acid level, adjust Depakote to reach a therapeutic level. We may need to add Wellbutrin or Cymbalta as an antidepressant in place of Lexapro. I will see her daily individually from a psychiatric standpoint. LEON PARHAM MD DR: MELINDA/brandon JOB#: [id number] / [id number]
[2017-04-18] MEDS ORDERED: traZODone 50 MG TABLET. PO PRN (18:45)
--- NOTE | 2017-04-18 20:26 | PDOC ---
Exam Note: Michi Note: Please also refer to the separate dictated note~for this date of service dictated separately.~Patient seen individually. Discussed the patient with Nursing staff reviewed the chart.~Reviewed interim history and current functioning. Reviewed vital signs,~Labs/ Radiology~and current medications noted below. Continue current treatment with the changes noted in the dictated addendum note Assessment: Vital Signs: Vital Signs Date Time Temp Pulse Resp B/P (MAP) Pulse Ox O2 Delivery O2 Flow Rate FiO2 04/18/17 17:27 95 Nasal Cannula 2.0 04/18/17 16:04 97.0 69 18 106/74 (85) I&O Intake and Output 04/18/17 07:00 Intake Total 840 ml Balance 840 ml Intake Oral 840 ml # Bowel Movements 1 Current Medications: Meds: Current Medications Sodium Chloride 1,000 ml @ 1,000 mls/hr Q1H IV Last administered on 04/16/17at 03:52; Start 04/16/17 at 21:45; Stop 04/16/17 at 22:44; Status DC Potassium Chloride (KCl Oral Soln) 40 meq 1X ONCE PO Last administered on 04/17at 03:52; Start 04/17/17 at 01:15; Stop 04/17/17 at 03:03; Status DC Magnesium Hydroxide (Milk Of Magnesia) 2,400 mg 1X ONCE PO Last administered on 04/17/17at 03:52; Start 04/17/17 at 01:15; Stop 04/17/17 at 03:03; Status DC Ceftriaxone Sodium 1 gm/ Sodium Chloride 50 ml @ 100 mls/hr 1X ONCE IV Last administered on 04/17/17at 03:52; Start 04/17/17 at 01:30; Stop 04/17/17 at 03:03 ; Status DC Magnesium Hydroxide (Milk Of Magnesia) 2,400 mg 1X ONCE PO ; Start 04/17/17 at 01:30; Stop 04/17/17 at 03:03; Status DC Potassium Chloride (KCl Oral Soln) 40 meq 1X ONCE PO ; Start 04/17/17 at 01:30 ; Stop 04/17/17 at 03:03; Status DC Cephalexin HCl (Keflex) 500 mg ONCE ONCE PO ; Start 04/17/17 at 02:00; Stop 12/25 at 03:04; Status DC Sodium Chloride 50 ml @ As Directed STK-MED ONCE .ROUTE ; Start 04/17/17 at 03: 32; Stop 04/17/17 at 03:33; Status DC Ceftriaxone Sodium (Rocephin) 1 gm STK-MED ONCE IV ; Start 04/17/17 at 03:32; Stop 04/17/17 at 03:33; Status DC Nicotine (Nicoderm Cq 14mg) 1 patch DAILY TD ; Start 04/17/17 at 09:00; Stop 12/25 at 09:00; Status DC Aripiprazole (Abilify) 5 mg DAILY PO Last administered on 04/18/17 09:26; Start 04/17/17 at 09:00; Stop 04/18/17 at 16:45; Status DC Hydroxyzine Pamoate (Vistaril) 25 mg QHS PO Last administered on 04/17/17at 21: 49; Start 04/17/17 at 21:00 Lorazepam (Ativan) 0.5 mg PRN Q12HR PRN PO ANXIETY / AGITATION; Start 04/17/17 at 07:15 Divalproex Sodium (Depakote Er) 1,000 mg QHS PO Last administered on 04/17/17at 21:49; Start 04/17/17 at 21:00 Citalopram Hydrobromide (CeleXA) 20 mg DAILY PO Last administered on 04/18/17at 09:27; Start 04/17/17 at 09:00 Zolpidem Tartrate (Ambien) 10 mg PRN QHS PRN PO INSOMNIA Last administered on at 00:44; Start 04/17/17 at 07:30 Nicotine (Nicoderm Cq 14mg) 1 patch DAILY TD Last administered on 04/18/17at 09: 28; Start 04/17/17 at 09:00 Cephalexin HCl (Keflex) 500 mg TID PO Last administered on 04/18/17at 12:56; Start 04/17/17 at 09:00; Stop 04/22/17 at 08:59 Potassium Chloride (Klor-Con) 20 meq DAILYWBKFT PO ; Start 04/17/17 at 08:00; Status UNV Magnesium Oxide (Magnesium Oxide) 400 mg DAILY PO Last administered on at 09:26; Start 04/17/17 at 09:00 Acetaminophen (Tylenol) 325 mg PRN Q4HRS PRN PO PAIN / TEMP; Start 04/17/17 at 07:45 Albuterol Sulfate (Ventolin) 2.5 mg PRN Q6HRS PRN NEB SHORTNESS OF BREATH; Start 04/17/17 at 08:00 Aspirin (Aspirin Enteric Coated) 81 mg DAILY PO Last administered on 04/18/17 09:27; Start 04/17/17 at 09:00 Clopidogrel Bisulfate (Plavix) 75 mg DAILY PO Last administered on 04/18/17 09 :27; Start 04/17/17 at 09:00 Digoxin (Lanoxin) 125 mcg DAILY PO Last administered on 04/18/17 09:26; Start 04/17/17 at 09:00 Famotidine (Pepcid) 20 mg BID PO Last administered on 04/18/17 09:27; Start at 09:00 Fentanyl (Duragesic 25mcg/ Hr) 1 patch Q72H TD ; Start 04/17/17 at 07:45; Status Cancel Furosemide (Lasix) 40 mg PRN DAILY PRN PO Weight gain >2# in 24 hrs ; Start 12/25 at 07:45 Albuterol/ Ipratropium (Duoneb) 3 ml PRN Q6HRS PRN NEB Asthma; Start 04/17/17 at 07:45 Magnesium Hydroxide (Milk Of Magnesia) 2,400 mg PRN Q24HRS PRN PO CONSTIPATION ; Start 04/17/17 at 07:45 Metoprolol Succinate (Toprol Xl) 12.5 mg DAILY PO ; Start 04/17/17 at 09:00 Miconazole Nitrate (Monistat-Derm) 1 silver PRN QID PRN TP Excoriation to Buttocks /Groin; Start 04/17/17 at 07:45 Oxybutynin Chloride (Ditropan) 5 mg DAILY PO Last administered on 04/18/17 09: 26; Start 04/17/17 at 09:00 Oxycodone HCl (Roxicodone) 5 mg QID PO Last administered on 04/18/17 17:27; Start 04/17/17 at 09:00 Potassium Chloride (Klor-Con) 20 meq DAILY PO Last administered on 04/18/17 09 :27; Start 04/17/17 at 09:00 Sennosides (Senna) 17.2 mg QHS PO Last administered on 04/17/17at 21:49; Start 04/17/17 at 21:00 Sucralfate (Carafate) 1 gm QID PO Last administered on 04/18/17 09:27; Start 04/17/17 at 09:00 Artificial Tears (Artificial Tears) 1 drop PRN QID PRN OS DRY EYE; Start at 08:00; Stop 04/17/17 at 14:31; Status DC Vitamin D (Vitamin D3) 50,000 unit QTH PO ; Start 04/21/17 at 16:00 Multivitamins/ Calcium (Thera-M Plus) 1 tab DAILY PO Last administered on 09:26; Start 04/17/17 at 09:00 Artificial Tears (Artificial Tears) 1 drop PRN QID PRN OS DRY EYE Last administered on 04/17/17at 17:33; Start 04/17/17 at 14:31 Fentanyl (Duragesic 25mcg/ Hr) 1 patch Q72H TD Last administered on 04/18/17at 09:31; Start 04/18/17 at 09:00 Risperidone (RisperDAL) 0.5 mg QHS PO ; Start 04/18/17 at 21:00 Trazodone HCl (Desyrel) 50 mg QHS PO ; Start 04/18/17 at 21:00 Trazodone HCl (Desyrel) 50 mg PRN QHS PRN PO INSOMNIA, MAY REPEAT IN 1HR; Start 04/18/17 at 18:45 Active Scripts Active Reported Senna (Sennosides) 8.6 Mg Tablet 17.2 Mg PO QHS Pro-Stat Liquid (Amino Acids/Protein Hydrolys) 887 Ml Liquid 60 Ml PO BID Klor-Con M20 (Potassium Chloride) 20 Meq Tab.er.prt 20 Meq PO DAILY Plavix (Clopidogrel Bisulfate) 75 Mg Tablet 75 Mg PO DAILY Oxycodone Hcl 5 Mg Tablet 5 Mg PO QID Oxycodone Hcl 10 Mg Tablet 10 Mg PO PRN Q4HRS PRN Oxybutynin Chloride 5 Mg Tablet 5 Mg PO DAILY Milk Of Magnesia (Magnesium Hydroxide) 400 Mg/5 Ml Oral.susp 2,400 Mg PO PRN Q24HRS PRN Antifungal Cream (Miconazole Nitrate) 14 Gm Cream..g. 1 Silver TP PRN QID PRN Metoprolol Succinate ( Xl ) (Metoprolol Succinate) 25 Mg Tab.er.24h 12.5 Mg PO DAILY Lasix (Furosemide) 40 Mg Tablet 40 Mg PO PRN DAILY PRN Hydroxyzine Pamoate 25 Mg Capsule 25 Mg PO QHS FENTANYL 25mcg/hr (Fentanyl) 1 Each Patch.td72 1 Patch TD Q72H Famotidine 20 Mg Tablet 20 Mg PO BID Escitalopram Oxalate 10 Mg Tablet 10 Mg PO DAILY Vitamin D2 (Ergocalciferol (Vitamin D2)) 50,000 Unit Capsule 50,000 Unit PO QTH Duoneb 0.5-3(2.5) Mg/3 Ml (Albuterol/Ipratropium) 3 Ml Ampul.neb 3 Ml NEB PRN Q6HRS PRN Digoxin 125 Mcg Tablet 125 Mcg PO DAILY Restore Tears (Carboxymethylcellulose Sodium) 30 Ml Drops 1 Drop LEFTEYE PRN QID PRN Carafate (Sucralfate) 1 Gm Tablet 1 Gm PO QID Venelex Ointment (Balsam Welch/[place] Oil) 60 Gm Oint...g. 1 Silver TP PRN QID PRN Aspir-Low (Aspirin) 81 Mg Tablet. 81 Mg PO DAILY Abilify (Aripiprazole) 5 Mg Tablet 5 Mg PO DAILY Ambien Cr (Zolpidem Tartrate) 12.5 Mg Tab.mphase 12.5 Mg PO QHS PRN Proair Hfa Inhaler (Albuterol Sulfate) 8.5 Gm Hfa.aer.ad 2 Puff INH PRN Q6HRS PRN Tylenol (Acetaminophen) 325 Mg Tablet 325 Mg PO PRN Q4HRS PRN MDD 3000mg Lorazepam 0.5 Mg Tablet 0.5 Mg PO PRN Q12HR PRN Multiple Vitamin (Multivitamin With Minerals) 1 Each Tablet 1 Tab PO DAILY Depakote (Divalproex Sodium) 500 Mg Tablet. 1,000 Mg PO QHS I have reviewed the current psychotropics carefully including drug interactions. Risk benefit ratio favors no change other than as noted in my dictated progress note. Diagnosis: Problems: (1) Anxiety disorder (2) Psychotic depression (3) Major depressive disorder, recurrent episode (4) Mild cognitive impairment (5) Major depression LEON PARHAM MD Apr 18, 2017 20:26
[2017-04-18] MEDS: hydrOXYzine PAMOATE 25 MG CAPSULE PO SCH (20:33)
[2017-04-18] MEDS: DIVALPROEX ER 500 MG TAB.ER.24H PO SCH (20:33)
[2017-04-18] MEDS: SENNOSIDES 8.6 MG TABLET PO SCH (20:33)
[2017-04-18] MEDS: traZODone 50 MG TABLET. PO SCH (20:35)
[2017-04-18] MEDS ORDERED: risperiDONE 0.5 MG TABLET. PO SCH (21:00)
[2017-04-19 05:55] VITALS: BP 104/67
[2017-04-19] MEDS: METOPROLOL SUCC 24HR ER 25 MG TAB.ER.24H. PO SCH (08:28)
[2017-04-19] MEDS: FAMOTIDINE 20 MG TABLET PO SCH ×2 (08:28→20:50)
[2017-04-19] MEDS: CITALOPRAM 20 MG TABLET. PO SCH (08:28)
[2017-04-19] MEDS: CLOPIDOGREL BISULFATE 75 MG TABLET PO SCH (08:28)
[2017-04-19] MEDS: MAGNESIUM OXIDE 400 MG TABLET PO SCH (08:28)
[2017-04-19] MEDS: POTASSIUM CHLORIDE 20 MEQ TABLET.ER. PO SCH (08:29)
[2017-04-19] MEDS: CEPHALEXIN 250 MG CAPSULE PO SCH ×3 (08:29→20:51)
[2017-04-19] MEDS: DIGOXIN 125 MCG TABLET PO SCH (08:29)
[2017-04-19] MEDS: SUCRALFATE 1 GM TABLET. PO SCH ×4 (08:29→20:51)
[2017-04-19] MEDS: MULTIVITAMIN with MINERAL TABLET. PO SCH (08:29)
[2017-04-19] MEDS: ASPIRIN ENTERIC COATED 81 MG TABLET.DR. PO SCH (08:30)
[2017-04-19] MEDS: OXYBUTYNIN CHLORIDE 5 MG TABLET PO SCH (08:30)
[2017-04-19] MEDS: NICOTINE 14MG PATCH. TD SCH (08:30)
[2017-04-19] MEDS: oxyCODONE IR 5 MG TABLET PO SCH ×4 (08:32→20:50)
[2017-04-19 15:56] VITALS: BP 91/62
[2017-04-19] MEDS: traZODone 50 MG TABLET. PO SCH (20:50)
[2017-04-19] MEDS: risperiDONE 0.5 MG TABLET. PO SCH (20:51)
[2017-04-19] MEDS: SENNOSIDES 8.6 MG TABLET PO SCH (20:51)
[2017-04-19] MEDS: ZOLPIDEM 5 MG TABLET. PO PRN (20:51)
[2017-04-19] MEDS: hydrOXYzine PAMOATE 25 MG CAPSULE PO SCH (20:51)
[2017-04-19] MEDS: DIVALPROEX ER 500 MG TAB.ER.24H PO SCH (20:51)
--- NOTE | 2017-04-19 22:19 | PDOC ---
Exam Note: Michi Note: Please also refer to the separate dictated note~for this date of service dictated separately.~Patient seen individually. Discussed the patient with Nursing staff reviewed the chart.~Reviewed interim history and current functioning. Reviewed vital signs,~Labs/ Radiology~and current medications noted below. Continue current treatment with the changes noted in the dictated addendum note Assessment: Vital Signs: Vital Signs Date Time Temp Pulse Resp B/P (MAP) Pulse Ox O2 Delivery O2 Flow Rate FiO2 04/19/17 21:51 18 Nasal Cannula 04/19/17 18:37 95 2.0 04/19/17 15:56 97.1 69 91/62 (72) I&O Intake and Output 04/19/17 07:00 Intake Total 600 ml Balance 600 ml Intake Oral 600 ml # Voids 2 Current Medications: Meds: Current Medications Sodium Chloride 1,000 ml @ 1,000 mls/hr Q1H IV Last administered on 04/16/17at 03:52; Start 04/16/17 at 21:45; Stop 04/16/17 at 22:44; Status DC Potassium Chloride (KCl Oral Soln) 40 meq 1X ONCE PO Last administered on 04/17at 03:52; Start 04/17/17 at 01:15; Stop 04/17/17 at 03:03; Status DC Magnesium Hydroxide (Milk Of Magnesia) 2,400 mg 1X ONCE PO Last administered on 04/17/17at 03:52; Start 04/17/17 at 01:15; Stop 04/17/17 at 03:03; Status DC Ceftriaxone Sodium 1 gm/ Sodium Chloride 50 ml @ 100 mls/hr 1X ONCE IV Last administered on 04/17/17at 03:52; Start 04/17/17 at 01:30; Stop 04/17/17 at 03:03 ; Status DC Magnesium Hydroxide (Milk Of Magnesia) 2,400 mg 1X ONCE PO ; Start 04/17/17 at 01:30; Stop 04/17/17 at 03:03; Status DC Potassium Chloride (KCl Oral Soln) 40 meq 1X ONCE PO ; Start 04/17/17 at 01:30 ; Stop 04/17/17 at 03:03; Status DC Cephalexin HCl (Keflex) 500 mg ONCE ONCE PO ; Start 04/17/17 at 02:00; Stop 12/25 at 03:04; Status DC Sodium Chloride 50 ml @ As Directed STK-MED ONCE .ROUTE ; Start 04/17/17 at 03: 32; Stop 04/17/17 at 03:33; Status DC Ceftriaxone Sodium (Rocephin) 1 gm STK-MED ONCE IV ; Start 04/17/17 at 03:32; Stop 04/17/17 at 03:33; Status DC Nicotine (Nicoderm Cq 14mg) 1 patch DAILY TD ; Start 04/17/17 at 09:00; Stop 12/25 at 09:00; Status DC Aripiprazole (Abilify) 5 mg DAILY PO Last administered on 04/18/17at 09:26; Start 04/17/17 at 09:00; Stop 04/18/17 at 16:45; Status DC Hydroxyzine Pamoate (Vistaril) 25 mg QHS PO Last administered on 04/19/17at 20: 51; Start 04/17/17 at 21:00 Lorazepam (Ativan) 0.5 mg PRN Q12HR PRN PO ANXIETY / AGITATION; Start 04/17/17 at 07:15 Divalproex Sodium (Depakote Er) 1,000 mg QHS PO Last administered on 04/19/17at 20:51; Start 04/17/17 at 21:00 Citalopram Hydrobromide (CeleXA) 20 mg DAILY PO Last administered on 04/19/17at 08:28; Start 04/17/17 at 09:00 Zolpidem Tartrate (Ambien) 10 mg PRN QHS PRN PO INSOMNIA Last administered on at 20:51; Start 04/17/17 at 07:30 Nicotine (Nicoderm Cq 14mg) 1 patch DAILY TD Last administered on 04/19/17at 08: 30; Start 04/17/17 at 09:00 Cephalexin HCl (Keflex) 500 mg TID PO Last administered on 04/19/17at 20:51; Start 04/17/17 at 09:00; Stop 04/22/17 at 08:59 Potassium Chloride (Klor-Con) 20 meq DAILYWBKFT PO ; Start 04/17/17 at 08:00; Status UNV Magnesium Oxide (Magnesium Oxide) 400 mg DAILY PO Last administered on at 08:28; Start 04/17/17 at 09:00 Acetaminophen (Tylenol) 325 mg PRN Q4HRS PRN PO PAIN / TEMP; Start 04/17/17 at 07:45 Albuterol Sulfate (Ventolin) 2.5 mg PRN Q6HRS PRN NEB SHORTNESS OF BREATH; Start 04/17/17 at 08:00 Aspirin (Aspirin Enteric Coated) 81 mg DAILY PO Last administered on 04/19/17 08:30; Start 04/17/17 at 09:00 Clopidogrel Bisulfate (Plavix) 75 mg DAILY PO Last administered on 04/19/17 08 :28; Start 04/17/17 at 09:00 Digoxin (Lanoxin) 125 mcg DAILY PO Last administered on 04/19/17 08:29; Start 04/17/17 at 09:00 Famotidine (Pepcid) 20 mg BID PO Last administered on 04/19/17 20:50; Start at 09:00 Fentanyl (Duragesic 25mcg/ Hr) 1 patch Q72H TD ; Start 04/17/17 at 07:45; Status Cancel Furosemide (Lasix) 40 mg PRN DAILY PRN PO Weight gain >2# in 24 hrs Last administered on 04/19/17 13:46; Start 04/17/17 at 07:45 Albuterol/ Ipratropium (Duoneb) 3 ml PRN Q6HRS PRN NEB Asthma; Start 04/17/17 at 07:45 Magnesium Hydroxide (Milk Of Magnesia) 2,400 mg PRN Q24HRS PRN PO CONSTIPATION ; Start 04/17/17 at 07:45 Metoprolol Succinate (Toprol Xl) 12.5 mg DAILY PO Last administered on 08:28; Start 04/17/17 at 09:00 Miconazole Nitrate (Monistat-Derm) 1 silver PRN QID PRN TP Excoriation to Buttocks /Groin; Start 04/17/17 at 07:45 Oxybutynin Chloride (Ditropan) 5 mg DAILY PO Last administered on 04/19/17 08: 30; Start 04/17/17 at 09:00 Oxycodone HCl (Roxicodone) 5 mg QID PO Last administered on 04/19/17 20:50; Start 04/17/17 at 09:00 Potassium Chloride (Klor-Con) 20 meq DAILY PO Last administered on 04/19/17 08 :29; Start 04/17/17 at 09:00 Sennosides (Senna) 17.2 mg QHS PO Last administered on 04/19/17 20:51; Start 04/17/17 at 21:00 Sucralfate (Carafate) 1 gm QID PO Last administered on 04/19/17 20:51; Start 04/17/17 at 09:00 Artificial Tears (Artificial Tears) 1 drop PRN QID PRN OS DRY EYE; Start at 08:00; Stop 04/17/17 at 14:31; Status DC Vitamin D (Vitamin D3) 50,000 unit QTH PO ; Start 04/21/17 at 16:00 Multivitamins/ Calcium (Thera-M Plus) 1 tab DAILY PO Last administered on 08:29; Start 04/17/17 at 09:00 Artificial Tears (Artificial Tears) 1 drop PRN QID PRN OS DRY EYE Last administered on 04/17/17 17:33; Start 04/17/17 at 14:31 Fentanyl (Duragesic 25mcg/ Hr) 1 patch Q72H TD Last administered on 04/18/17 09:31; Start 04/18/17 at 09:00 Risperidone (RisperDAL) 0.5 mg QHS PO Last administered on 04/18/17 20:35; Start 04/18/17 at 21:00; Stop 04/19/17 at 19:21; Status DC Trazodone HCl (Desyrel) 50 mg QHS PO Last administered on 04/19/17 20:50; Start 04/18/17 at 21:00 Trazodone HCl (Desyrel) 50 mg PRN QHS PRN PO INSOMNIA, MAY REPEAT IN 1HR; Start 04/18/17 at 18:45 Risperidone (RisperDAL) 0.75 mg QHS PO Last administered on 04/19/17 20:51; Start 04/19/17 at 21:00 Active Scripts Active Reported Senna (Sennosides) 8.6 Mg Tablet 17.2 Mg PO QHS Pro-Stat Liquid (Amino Acids/Protein Hydrolys) 887 Ml Liquid 60 Ml PO BID Klor-Con M20 (Potassium Chloride) 20 Meq Tab.er.prt 20 Meq PO DAILY Plavix (Clopidogrel Bisulfate) 75 Mg Tablet 75 Mg PO DAILY Oxycodone Hcl 5 Mg Tablet 5 Mg PO QID Oxycodone Hcl 10 Mg Tablet 10 Mg PO PRN Q4HRS PRN Oxybutynin Chloride 5 Mg Tablet 5 Mg PO DAILY Milk Of Magnesia (Magnesium Hydroxide) 400 Mg/5 Ml Oral.susp 2,400 Mg PO PRN Q24HRS PRN Antifungal Cream (Miconazole Nitrate) 14 Gm Cream..g. 1 Silver TP PRN QID PRN Metoprolol Succinate ( Xl ) (Metoprolol Succinate) 25 Mg Tab.er.24h 12.5 Mg PO DAILY Lasix (Furosemide) 40 Mg Tablet 40 Mg PO PRN DAILY PRN Hydroxyzine Pamoate 25 Mg Capsule 25 Mg PO QHS FENTANYL 25mcg/hr (Fentanyl) 1 Each Patch.td72 1 Patch TD Q72H Famotidine 20 Mg Tablet 20 Mg PO BID Escitalopram Oxalate 10 Mg Tablet 10 Mg PO DAILY Vitamin D2 (Ergocalciferol (Vitamin D2)) 50,000 Unit Capsule 50,000 Unit PO QTH Duoneb 0.5-3(2.5) Mg/3 Ml (Albuterol/Ipratropium) 3 Ml Ampul.neb 3 Ml NEB PRN Q6HRS PRN Digoxin 125 Mcg Tablet 125 Mcg PO DAILY Restore Tears (Carboxymethylcellulose Sodium) 30 Ml Drops 1 Drop LEFTEYE PRN QID PRN Carafate (Sucralfate) 1 Gm Tablet 1 Gm PO QID Venelex Ointment (Balsam Adal/[place] Oil) 60 Gm Oint...g. 1 Silver TP PRN QID PRN Aspir-Low (Aspirin) 81 Mg Tablet.dr 81 Mg PO DAILY Abilify (Aripiprazole) 5 Mg Tablet 5 Mg PO DAILY Ambien Cr (Zolpidem Tartrate) 12.5 Mg Tab.mphase 12.5 Mg PO QHS PRN Proair Hfa Inhaler (Albuterol Sulfate) 8.5 Gm Hfa.aer.ad 2 Puff INH PRN Q6HRS PRN Tylenol (Acetaminophen) 325 Mg Tablet 325 Mg PO PRN Q4HRS PRN MDD 3000mg Lorazepam 0.5 Mg Tablet 0.5 Mg PO PRN Q12HR PRN Multiple Vitamin (Multivitamin With Minerals) 1 Each Tablet 1 Tab PO DAILY Depakote (Divalproex Sodium) 500 Mg Tablet. 1,000 Mg PO QHS I have reviewed the current psychotropics carefully including drug interactions. Risk benefit ratio favors no change other than as noted in my dictated progress note. Diagnosis: Problems: (1) Anxiety disorder (2) Psychotic depression (3) Major depressive disorder, recurrent episode (4) Mild cognitive impairment (5) Major depression LEON PARHAM MD Apr 19, 2017 22:19
[2017-04-20 05:55] VITALS: BP 110/80
[2017-04-20] MEDS: CLOPIDOGREL BISULFATE 75 MG TABLET PO SCH (08:29)
[2017-04-20] MEDS: MAGNESIUM OXIDE 400 MG TABLET PO SCH (08:29)
[2017-04-20] MEDS: POTASSIUM CHLORIDE 20 MEQ TABLET.ER. PO SCH ×2 (08:29→09:00)
[2017-04-20] MEDS: DIGOXIN 125 MCG TABLET PO SCH (08:30)
[2017-04-20] MEDS: CEPHALEXIN 250 MG CAPSULE PO SCH ×3 (08:30→20:39)
[2017-04-20] MEDS: NICOTINE 14MG PATCH. TD SCH (08:30)
[2017-04-20] MEDS: MULTIVITAMIN with MINERAL TABLET. PO SCH ×2 (08:30→09:00)
[2017-04-20] MEDS: CITALOPRAM 20 MG TABLET. PO SCH (08:30)
[2017-04-20] MEDS: ASPIRIN ENTERIC COATED 81 MG TABLET.DR. PO SCH (08:30)
[2017-04-20] MEDS: SUCRALFATE 1 GM TABLET. PO SCH ×4 (08:30→20:39)
[2017-04-20] MEDS: OXYBUTYNIN CHLORIDE 5 MG TABLET PO SCH (08:31)
[2017-04-20] MEDS: METOPROLOL SUCC 24HR ER 25 MG TAB.ER.24H. PO SCH (08:31)
[2017-04-20] MEDS: FAMOTIDINE 20 MG TABLET PO SCH ×2 (08:31→20:40)
[2017-04-20] MEDS: oxyCODONE IR 5 MG TABLET PO SCH ×4 (08:33→20:40)
--- NOTE | 2017-04-20 08:34 | PN ---
DATE: 04/18/2017 PSYCHIATRIC PROGRESS NOTE This late entry 04/18/2017 covers elements not covered in my initial note of 04/18/2017. SUBJECTIVE: Met with the patient in evening of 04/18/2017. The patient slept 4-1/2 hours previous evening. At night, she was having active hallucinations that she was seeing snakes. She was somewhat intrusive, somatically preoccupied, yelling for pain medications, quite helpless. In the morning, wanting nursing staff to do things for her even though she could do certain things, paranoid about her intermediate. Addressed this at length individually, isolating in a room for 4-1/2 hours. Ambulation is impaired. REVIEW OF SYSTEMS: No CV, , pulmonary, eye system symptoms on review. MENTAL STATUS EXAM: Reasonably oriented. Speech is coherent, paranoid. Abstraction fair, computation is impaired, language function intact. Attention span is short. IMPRESSION: Bipolar 1 disorder, depressed with psychotic features; cognitive disorder, unspecified; anxiety disorder, unspecified; urinary tract infection, insomnia. PLAN: Start trazodone 50 mg at bedtime, may repeat x 1 for insomnia. Abilify is being changed to Risperdal for her psychotic symptoms. Valproic acid level is therapeutic at 70. Continue Depakote at current dosage along with Lexapro. MAN Haley PARHAM MD DR: MELINDA/brandon JOB#: [id number] / [id number]
[2017-04-20 16:26] VITALS: BP 88/58
[2017-04-20] MEDS ORDERED: MAG HYDROX/AL HYDROX/SIMETH 30 ML ORAL.SUSP PO PRN (18:00)
[2017-04-20 19:38] LABS: BASO % 1 % (0-3); EOS # 0.2 x10^3/uL (0.0-0.7); EOS % 3 % (0-3); HEMATOCRIT 46.5 % (36.0-47.0); HEMOGLOBIN 15.3 g/dL (12.0-15.5); LYMPH # 2.2 x10^3/uL (1.0-4.8); LYMPH % 38 % (24-48); MEAN CORPUSCULAR HEMOGLOBIN 28 pg (25-35); MEAN CORPUSCULAR HGB CONC 33 g/dL (31-37); MEAN CORPUSCULAR VOLUME 84 fL (79-100); MONO # 0.5 x10^3/uL (0.0-1.1); MONO % 9 % (0-9); NEUT # 2.8 x10^3uL (1.8-7.7); NEUT % 49 % (31-73); PLATELET COUNT 204 x10^3/uL (140-400); RED BLOOD COUNT 5.55 x10^6/uL (3.50-5.40); RED CELL DISTRIBUTION WIDTH 17.8 % (11.5-14.5); WHITE BLOOD COUNT 5.8 x10^3/uL (4.0-11.0)
[2017-04-20 19:48] LABS: ALBUMIN 2.5 g/dL (3.4-5.0); ALBUMIN/GLOBULIN RATIO 0.5 (1.0-1.7); CALCIUM 9.4 mg/dL (8.5-10.1); CREATININE 0.7 mg/dL (0.6-1.0); GFR 85.4; POTASSIUM 4.5 mmol/L (3.5-5.1); TOTAL BILIRUBIN 0.2 mg/dL (0.2-1.0); TOTAL PROTEIN 7.7 g/dL (6.4-8.2)
[2017-04-20 19:56] LABS: MAGNESIUM 2.1 mg/dL (1.8-2.4)
[2017-04-20 20:35] VITALS: BP 98/67
[2017-04-20] MEDS: DIVALPROEX ER 500 MG TAB.ER.24H PO SCH (20:40)
[2017-04-20] MEDS: risperiDONE 0.5 MG TABLET. PO SCH (20:40)
[2017-04-20] MEDS: hydrOXYzine PAMOATE 25 MG CAPSULE PO SCH (20:40)
[2017-04-20] MEDS: SENNOSIDES 8.6 MG TABLET PO SCH (20:40)
[2017-04-20] MEDS: traZODone 50 MG TABLET. PO SCH (20:40)
--- NOTE | 2017-04-20 20:43 | PDOC ---
Exam Note: Michi Note: Please also refer to the separate dictated note~for this date of service dictated separately.~Patient seen individually. Discussed the patient with Nursing staff reviewed the chart.~Reviewed interim history and current functioning. Reviewed vital signs,~Labs/ Radiology~and current medications noted below. Continue current treatment with the changes noted in the dictated addendum note Assessment: Vital Signs: Vital Signs Date Time Temp Pulse Resp B/P (MAP) Pulse Ox O2 Delivery O2 Flow Rate FiO2 04/20/17 20:40 94 04/20/17 20:35 76 98/67 (77) 2.0 04/20/17 18:37 18 Nasal Cannula 04/20/17 16:26 97.2 I&O Intake and Output 04/20/17 07:00 Intake Total 720 ml Balance 720 ml Intake Oral 720 ml # Voids 2 Labs: Laboratory Tests Test 04/20/17 19:25 White Blood Count 5.8 x10^3/uL (4.0-11.0) Red Blood Count 5.55 x10^6/uL (3.50-5.40) H Hemoglobin 15.3 g/dL (12.0-15.5) Hematocrit 46.5 % (36.0-47.0) Mean Corpuscular Volume 84 fL (79-100) Mean Corpuscular Hemoglobin 28 pg (25-35) Mean Corpuscular Hemoglobin Concent 33 g/dL (31-37) Red Cell Distribution Width 17.8 % (11.5-14.5) H Platelet Count 204 x10^3/uL (140-400) Neutrophils (%) (Auto) 49 % (31-73) Lymphocytes (%) (Auto) 38 % (24-48) Monocytes (%) (Auto) 9 % (0-9) Eosinophils (%) (Auto) 3 % (0-3) Basophils (%) (Auto) 1 % (0-3) Neutrophils # (Auto) 2.8 x10^3uL (1.8-7.7) Lymphocytes # (Auto) 2.2 x10^3/uL (1.0-4.8) Monocytes # (Auto) 0.5 x10^3/uL (0.0-1.1) Eosinophils # (Auto) 0.2 x10^3/uL (0.0-0.7) Basophils # (Auto) 0.0 x10^3/uL (0.0-0.2) Sodium Level 137 mmol/L (136-145) Potassium Level 4.5 mmol/L (3.5-5.1) Chloride Level 97 mmol/L (98-107) L Carbon Dioxide Level 39 mmol/L (21-32) H Anion Gap 1 (6-14) L Blood Urea Nitrogen 11 mg/dL (7-20) Creatinine 0.7 mg/dL (0.6-1.0) Estimated GFR (Cockcroft-Gault) 85.4 BUN/Creatinine Ratio 16 (6-20) Glucose Level 114 mg/dL (70-99) H Calcium Level 9.4 mg/dL (8.5-10.1) Magnesium Level 2.1 mg/dL (1.8-2.4) Total Bilirubin 0.2 mg/dL (0.2-1.0) Aspartate Amino Transferase (AST) 17 U/L (15-37) Alanine Aminotransferase (ALT) 12 U/L (14-59) L Alkaline Phosphatase 129 U/L (46-116) H [id number]-Type Natriuretic Peptide 102 pg/mL (0-124) Total Protein 7.7 g/dL (6.4-8.2) Albumin 2.5 g/dL (3.4-5.0) L Albumin/Globulin Ratio 0.5 (1.0-1.7) L Current Medications: Meds: Current Medications Sodium Chloride 1,000 ml @ 1,000 mls/hr Q1H IV Last administered on 04/16/17at 03:52; Start 04/16/17 at 21:45; Stop 04/16/17 at 22:44; Status DC Potassium Chloride (KCl Oral Soln) 40 meq 1X ONCE PO Last administered on 04/17at 03:52; Start 04/17/17 at 01:15; Stop 04/17/17 at 03:03; Status DC Magnesium Hydroxide (Milk Of Magnesia) 2,400 mg 1X ONCE PO Last administered on 04/17/17at 03:52; Start 04/17/17 at 01:15; Stop 04/17/17 at 03:03; Status DC Ceftriaxone Sodium 1 gm/ Sodium Chloride 50 ml @ 100 mls/hr 1X ONCE IV Last administered on 04/17/17at 03:52; Start 04/17/17 at 01:30; Stop 04/17/17 at 03:03 ; Status DC Magnesium Hydroxide (Milk Of Magnesia) 2,400 mg 1X ONCE PO ; Start 04/17/17 at 01:30; Stop 04/17/17 at 03:03; Status DC Potassium Chloride (KCl Oral Soln) 40 meq 1X ONCE PO ; Start 04/17/17 at 01:30 ; Stop 04/17/17 at 03:03; Status DC Cephalexin HCl (Keflex) 500 mg ONCE ONCE PO ; Start 04/17/17 at 02:00; Stop 12/25 at 03:04; Status DC Sodium Chloride 50 ml @ As Directed STK-MED ONCE .ROUTE ; Start 04/17/17 at 03: 32; Stop 04/17/17 at 03:33; Status DC Ceftriaxone Sodium (Rocephin) 1 gm STK-MED ONCE IV ; Start 04/17/17 at 03:32; Stop 04/17/17 at 03:33; Status DC Nicotine (Nicoderm Cq 14mg) 1 patch DAILY TD ; Start 04/17/17 at 09:00; Stop 12/25 at 09:00; Status DC Aripiprazole (Abilify) 5 mg DAILY PO Last administered on 04/18/17at 09:26; Start 04/17/17 at 09:00; Stop 04/18/17 at 16:45; Status DC Hydroxyzine Pamoate (Vistaril) 25 mg QHS PO Last administered on 04/19/17at 20: 51; Start 04/17/17 at 21:00 Lorazepam (Ativan) 0.5 mg PRN Q12HR PRN PO ANXIETY / AGITATION; Start 04/17/17 at 07:15 Divalproex Sodium (Depakote Er) 1,000 mg QHS PO Last administered on 04/20/17at 20:40; Start 04/17/17 at 21:00 Citalopram Hydrobromide (CeleXA) 20 mg DAILY PO Last administered on 04/20/17at 08:30; Start 04/17/17 at 09:00 Zolpidem Tartrate (Ambien) 10 mg PRN QHS PRN PO INSOMNIA Last administered on at 20:51; Start 04/17/17 at 07:30 Nicotine (Nicoderm Cq 14mg) 1 patch DAILY TD Last administered on 04/20/17 08: 30; Start 04/17/17 at 09:00 Cephalexin HCl (Keflex) 500 mg TID PO Last administered on 04/20/17at 20:39; Start 04/17/17 at 09:00; Stop 04/22/17 at 08:59 Potassium Chloride (Klor-Con) 20 meq DAILYWBKFT PO ; Start 04/17/17 at 08:00; Status UNV Magnesium Oxide (Magnesium Oxide) 400 mg DAILY PO Last administered on 08:29; Start 04/17/17 at 09:00 Acetaminophen (Tylenol) 325 mg PRN Q4HRS PRN PO PAIN / TEMP; Start 04/17/17 at 07:45 Albuterol Sulfate (Ventolin) 2.5 mg PRN Q6HRS PRN NEB SHORTNESS OF BREATH; Start 04/17/17 at 08:00 Aspirin (Aspirin Enteric Coated) 81 mg DAILY PO Last administered on 04/20/17 08:30; Start 04/17/17 at 09:00 Clopidogrel Bisulfate (Plavix) 75 mg DAILY PO Last administered on 04/20/17 08 :29; Start 04/17/17 at 09:00 Digoxin (Lanoxin) 125 mcg DAILY PO Last administered on 04/20/17 08:30; Start 04/17/17 at 09:00 Famotidine (Pepcid) 20 mg BID PO Last administered on 04/20/17at 20:40; Start at 09:00 Fentanyl (Duragesic 25mcg/ Hr) 1 patch Q72H TD ; Start 04/17/17 at 07:45; Status Cancel Furosemide (Lasix) 40 mg PRN DAILY PRN PO Weight gain >2# in 24 hrs Last administered on 04/19/17at 13:46; Start 04/17/17 at 07:45 Albuterol/ Ipratropium (Duoneb) 3 ml PRN Q6HRS PRN NEB Asthma; Start 04/17/17 at 07:45 Magnesium Hydroxide (Milk Of Magnesia) 2,400 mg PRN Q24HRS PRN PO CONSTIPATION ; Start 04/17/17 at 07:45 Metoprolol Succinate (Toprol Xl) 12.5 mg DAILY PO Last administered on 08:31; Start 04/17/17 at 09:00 Miconazole Nitrate (Monistat-Derm) 1 silver PRN QID PRN TP Excoriation to Buttocks /Groin; Start 04/17/17 at 07:45 Oxybutynin Chloride (Ditropan) 5 mg DAILY PO Last administered on 04/20/17 08: 31; Start 04/17/17 at 09:00 Oxycodone HCl (Roxicodone) 5 mg QID PO Last administered on 04/20/17 17:12; Start 04/17/17 at 09:00 Potassium Chloride (Klor-Con) 20 meq DAILY PO Last administered on 04/19/17 08 :29; Start 04/17/17 at 09:00 Sennosides (Senna) 17.2 mg QHS PO Last administered on 04/20/17 20:40; Start 04/17/17 at 21:00 Sucralfate (Carafate) 1 gm QID PO Last administered on 04/20/17 20:39; Start 04/17/17 at 09:00 Artificial Tears (Artificial Tears) 1 drop PRN QID PRN OS DRY EYE; Start at 08:00; Stop 04/17/17 at 14:31; Status DC Vitamin D (Vitamin D3) 50,000 unit QTH PO ; Start 04/21/17 at 16:00 Multivitamins/ Calcium (Thera-M Plus) 1 tab DAILY PO Last administered on 08:29; Start 04/17/17 at 09:00 Artificial Tears (Artificial Tears) 1 drop PRN QID PRN OS DRY EYE Last administered on 04/17/17 17:33; Start 04/17/17 at 14:31 Fentanyl (Duragesic 25mcg/ Hr) 1 patch Q72H TD Last administered on 04/18/17 09:31; Start 04/18/17 at 09:00 Risperidone (RisperDAL) 0.5 mg QHS PO Last administered on 04/18/17 20:35; Start 04/18/17 at 21:00; Stop 04/19/17 at 19:21; Status DC Trazodone HCl (Desyrel) 50 mg QHS PO Last administered on 04/19/17at 20:50; Start 04/18/17 at 21:00 Trazodone HCl (Desyrel) 50 mg PRN QHS PRN PO INSOMNIA, MAY REPEAT IN 1HR; Start 04/18/17 at 18:45 Risperidone (RisperDAL) 0.75 mg QHS PO Last administered on 04/19/17at 20:51; Start 04/19/17 at 21:00 Al Hydroxide/Mg Hydroxide (Mylanta Plus Xs) 30 ml PRN AFTMEAL PRN PO DYSPEPSIA Last administered on 04/20/17at 18:08; Start 04/20/17 at 18:00 Active Scripts Active Reported Senna (Sennosides) 8.6 Mg Tablet 17.2 Mg PO QHS Pro-Stat Liquid (Amino Acids/Protein Hydrolys) 887 Ml Liquid 60 Ml PO BID Klor-Con M20 (Potassium Chloride) 20 Meq Tab.er.prt 20 Meq PO DAILY Plavix (Clopidogrel Bisulfate) 75 Mg Tablet 75 Mg PO DAILY Oxycodone Hcl 5 Mg Tablet 5 Mg PO QID Oxycodone Hcl 10 Mg Tablet 10 Mg PO PRN Q4HRS PRN Oxybutynin Chloride 5 Mg Tablet 5 Mg PO DAILY Milk Of Magnesia (Magnesium Hydroxide) 400 Mg/5 Ml Oral.susp 2,400 Mg PO PRN Q24HRS PRN Antifungal Cream (Miconazole Nitrate) 14 Gm Cream..g. 1 Silver TP PRN QID PRN Metoprolol Succinate ( Xl ) (Metoprolol Succinate) 25 Mg Tab.er.24h 12.5 Mg PO DAILY Lasix (Furosemide) 40 Mg Tablet 40 Mg PO PRN DAILY PRN Hydroxyzine Pamoate 25 Mg Capsule 25 Mg PO QHS FENTANYL 25mcg/hr (Fentanyl) 1 Each Patch.td72 1 Patch TD Q72H Famotidine 20 Mg Tablet 20 Mg PO BID Escitalopram Oxalate 10 Mg Tablet 10 Mg PO DAILY Vitamin D2 (Ergocalciferol (Vitamin D2)) 50,000 Unit Capsule 50,000 Unit PO QTH Duoneb 0.5-3(2.5) Mg/3 Ml (Albuterol/Ipratropium) 3 Ml Ampul.neb 3 Ml NEB PRN Q6HRS PRN Digoxin 125 Mcg Tablet 125 Mcg PO DAILY Restore Tears (Carboxymethylcellulose Sodium) 30 Ml Drops 1 Drop LEFTEYE PRN QID PRN Carafate (Sucralfate) 1 Gm Tablet 1 Gm PO QID Venelex Ointment (Balsam [place] Oil) 60 Gm Oint...g. 1 Silver TP PRN QID PRN Aspir-Low (Aspirin) 81 Mg Tablet. 81 Mg PO DAILY Abilify (Aripiprazole) 5 Mg Tablet 5 Mg PO DAILY Ambien Cr (Zolpidem Tartrate) 12.5 Mg Tab.mphase 12.5 Mg PO QHS PRN Proair Hfa Inhaler (Albuterol Sulfate) 8.5 Gm Hfa.aer.ad 2 Puff INH PRN Q6HRS PRN Tylenol (Acetaminophen) 325 Mg Tablet 325 Mg PO PRN Q4HRS PRN MDD 3000mg Lorazepam 0.5 Mg Tablet 0.5 Mg PO PRN Q12HR PRN Multiple Vitamin (Multivitamin With Minerals) 1 Each Tablet 1 Tab PO DAILY Depakote (Divalproex Sodium) 500 Mg Tablet. 1,000 Mg PO QHS I have reviewed the current psychotropics carefully including drug interactions. Risk benefit ratio favors no change other than as noted in my dictated progress note. Diagnosis: Problems: (1) Anxiety disorder (2) Psychotic depression (3) Major depressive disorder, recurrent episode (4) Mild cognitive impairment (5) Major depression LEON PARHAM MD Apr 20, 2017 20:43
[2017-04-20 23:37] VITALS: BP 86/46
--- NOTE | 2017-04-21 00:38 | PN ---
DATE: 04/19/2017 PSYCHIATRIC PROGRESS NOTE This is a late entry for 04/19/2017, covers elements not covered in my initial note of 04/19/2017. SUBJECTIVE: I met with the patient the evening of 04/19/2017. The patient slept 6 hours previous evening, up for breakfast and dinner, withdrawn the rest of the time in bed. Denies hallucinations. UA, culture and sensitivity is negative. Quite paranoid, suspicious, as I met with her. REVIEW OF SYSTEMS: Ambulation impaired, in wheelchair. No CV, , pulmonary, eye system symptoms on review. MENTAL STATUS EXAM: Oriented to herself and situation. Speech moderate latency, often responses monosyllabic. Abstraction fair, computation impaired, language function intact. Mood and affect, paranoid, withdrawn. LABORATORY DATA: Reviewed. IMPRESSION: Unchanged from initial note. PLAN: Increase Risperdal to 0.75 mg p.o. at bedtime. Continue rest unchanged. Valproic acid level therapeutic at 70. MAN Haley PARHAM MD DR: MELINDA/brandon JOB#: [id number] / [id number]
[2017-04-21 06:09] VITALS: BP 97/53
[2017-04-21] MEDS: MULTIVITAMIN with MINERAL TABLET. PO SCH (08:32)
[2017-04-21] MEDS: OXYBUTYNIN CHLORIDE 5 MG TABLET PO SCH (08:32)
[2017-04-21] MEDS: FAMOTIDINE 20 MG TABLET PO SCH ×2 (08:32→20:20)
[2017-04-21] MEDS: ASPIRIN ENTERIC COATED 81 MG TABLET.DR. PO SCH (08:32)
[2017-04-21] MEDS: CITALOPRAM 20 MG TABLET. PO SCH (08:32)
[2017-04-21] MEDS: SUCRALFATE 1 GM TABLET. PO SCH ×4 (08:32→20:24)
[2017-04-21] MEDS: NICOTINE 14MG PATCH. TD SCH (08:32)
[2017-04-21] MEDS: CEPHALEXIN 250 MG CAPSULE PO SCH ×3 (08:32→20:20)
[2017-04-21] MEDS: MAGNESIUM OXIDE 400 MG TABLET PO SCH (08:32)
[2017-04-21] MEDS: CLOPIDOGREL BISULFATE 75 MG TABLET PO SCH (08:32)
[2017-04-21] MEDS: POTASSIUM CHLORIDE 20 MEQ TABLET.ER. PO SCH (08:32)
[2017-04-21] MEDS: LACTOBACILLUS RHAMNOSUS GG 1 CAPSULE. PO SCH ×2 (08:34→20:20)
[2017-04-21] MEDS: oxyCODONE IR 5 MG TABLET PO SCH ×4 (08:35→21:00)
[2017-04-21] MEDS: fentaNYL 25MCG/HR 1 PATCH PATCH TD SCH (08:36)
[2017-04-21] MEDS: DIGOXIN 125 MCG TABLET PO SCH (09:00)
[2017-04-21] MEDS: METOPROLOL SUCC 24HR ER 25 MG TAB.ER.24H. PO SCH (09:00)
[2017-04-21] MEDS ORDERED: CHOLECALCIFEROL (VITAMIN D3) 50,000 UNIT CAPSULE PO SCH (16:00)
[2017-04-21 16:23] VITALS: BP 105/71
[2017-04-21] MEDS: SENNOSIDES 8.6 MG TABLET PO SCH (20:19)
[2017-04-21] MEDS: DIVALPROEX ER 500 MG TAB.ER.24H PO SCH (20:20)
[2017-04-21] MEDS: traZODone 50 MG TABLET. PO SCH ×3 (20:20→21:09)
[2017-04-21] MEDS: hydrOXYzine PAMOATE 25 MG CAPSULE PO SCH (20:20)
[2017-04-21] MEDS: risperiDONE 0.5 MG TABLET. PO SCH (20:21)
--- NOTE | 2017-04-21 20:26 | PDOC ---
Exam Note: Michi Note: Please also refer to the separate dictated note~for this date of service dictated separately.~Patient seen individually. Discussed the patient with Nursing staff reviewed the chart.~Reviewed interim history and current functioning. Reviewed vital signs,~Labs/ Radiology~and current medications noted below. Continue current treatment with the changes noted in the dictated addendum note Assessment: Vital Signs: Vital Signs Date Time Temp Pulse Resp B/P (MAP) Pulse Ox O2 Delivery O2 Flow Rate FiO2 04/21/17 18:22 18 93 Nasal Cannula 2.0 04/21/17 16:23 97.3 67 105/71 (82) I&O Intake and Output 04/21/17 07:00 Intake Total 720 ml Balance 720 ml Intake Oral 720 ml # Voids 1 Current Medications: Meds: Current Medications Sodium Chloride 1,000 ml @ 1,000 mls/hr Q1H IV Last administered on 04/16/17at 03:52; Start 04/16/17 at 21:45; Stop 04/16/17 at 22:44; Status DC Potassium Chloride (KCl Oral Soln) 40 meq 1X ONCE PO Last administered on 04/17at 03:52; Start 04/17/17 at 01:15; Stop 04/17/17 at 03:03; Status DC Magnesium Hydroxide (Milk Of Magnesia) 2,400 mg 1X ONCE PO Last administered on 04/17/17at 03:52; Start 04/17/17 at 01:15; Stop 04/17/17 at 03:03; Status DC Ceftriaxone Sodium 1 gm/ Sodium Chloride 50 ml @ 100 mls/hr 1X ONCE IV Last administered on 04/17/17at 03:52; Start 04/17/17 at 01:30; Stop 04/17/17 at 03:03 ; Status DC Magnesium Hydroxide (Milk Of Magnesia) 2,400 mg 1X ONCE PO ; Start 04/17/17 at 01:30; Stop 04/17/17 at 03:03; Status DC Potassium Chloride (KCl Oral Soln) 40 meq 1X ONCE PO ; Start 04/17/17 at 01:30 ; Stop 04/17/17 at 03:03; Status DC Cephalexin HCl (Keflex) 500 mg ONCE ONCE PO ; Start 04/17/17 at 02:00; Stop 12/25 at 03:04; Status DC Sodium Chloride 50 ml @ As Directed STK-MED ONCE .ROUTE ; Start 04/17/17 at 03: 32; Stop 04/17/17 at 03:33; Status DC Ceftriaxone Sodium (Rocephin) 1 gm STK-MED ONCE IV ; Start 04/17/17 at 03:32; Stop 04/17/17 at 03:33; Status DC Nicotine (Nicoderm Cq 14mg) 1 patch DAILY TD ; Start 04/17/17 at 09:00; Stop 12/25 at 09:00; Status DC Aripiprazole (Abilify) 5 mg DAILY PO Last administered on 04/18/17at 09:26; Start 04/17/17 at 09:00; Stop 04/18/17 at 16:45; Status DC Hydroxyzine Pamoate (Vistaril) 25 mg QHS PO Last administered on 04/21/17at 20: 20; Start 04/17/17 at 21:00 Lorazepam (Ativan) 0.5 mg PRN Q12HR PRN PO ANXIETY / AGITATION; Start 04/17/17 at 07:15 Divalproex Sodium (Depakote Er) 1,000 mg QHS PO Last administered on 04/21/17at 20:20; Start 04/17/17 at 21:00 Citalopram Hydrobromide (CeleXA) 20 mg DAILY PO Last administered on 04/21/17at 08:32; Start 04/17/17 at 09:00 Zolpidem Tartrate (Ambien) 10 mg PRN QHS PRN PO INSOMNIA Last administered on at 20:51; Start 04/17/17 at 07:30 Nicotine (Nicoderm Cq 14mg) 1 patch DAILY TD Last administered on 04/21/17at 08: 32; Start 04/17/17 at 09:00 Cephalexin HCl (Keflex) 500 mg TID PO Last administered on 04/21/17at 20:20; Start 04/17/17 at 09:00; Stop 04/22/17 at 08:59 Potassium Chloride (Klor-Con) 20 meq DAILYWBKFT PO ; Start 04/17/17 at 08:00; Status UNV Magnesium Oxide (Magnesium Oxide) 400 mg DAILY PO Last administered on at 08:32; Start 04/17/17 at 09:00 Acetaminophen (Tylenol) 325 mg PRN Q4HRS PRN PO PAIN / TEMP Last administered on 04/21/17at 07:25; Start 04/17/17 at 07:45 Albuterol Sulfate (Ventolin) 2.5 mg PRN Q6HRS PRN NEB SHORTNESS OF BREATH; Start 04/17/17 at 08:00 Aspirin (Aspirin Enteric Coated) 81 mg DAILY PO Last administered on 04/21/17at 08:32; Start 04/17/17 at 09:00 Clopidogrel Bisulfate (Plavix) 75 mg DAILY PO Last administered on 04/21/17 08 :32; Start 04/17/17 at 09:00 Digoxin (Lanoxin) 125 mcg DAILY PO Last administered on 04/20/17at 08:30; Start 04/17/17 at 09:00 Famotidine (Pepcid) 20 mg BID PO Last administered on 04/21/17at 20:20; Start at 09:00 Fentanyl (Duragesic 25mcg/ Hr) 1 patch Q72H TD ; Start 04/17/17 at 07:45; Status Cancel Furosemide (Lasix) 40 mg PRN DAILY PRN PO Weight gain >2# in 24 hrs Last administered on 04/19/17at 13:46; Start 04/17/17 at 07:45 Albuterol/ Ipratropium (Duoneb) 3 ml PRN Q6HRS PRN NEB Asthma; Start 04/17/17 at 07:45 Magnesium Hydroxide (Milk Of Magnesia) 2,400 mg PRN Q24HRS PRN PO CONSTIPATION ; Start 04/17/17 at 07:45 Metoprolol Succinate (Toprol Xl) 12.5 mg DAILY PO Last administered on at 08:31; Start 04/17/17 at 09:00; Stop 04/21/17 at 16:52; Status DC Miconazole Nitrate (Monistat-Derm) 1 silver PRN QID PRN TP Excoriation to Buttocks /Groin; Start 04/17/17 at 07:45 Oxybutynin Chloride (Ditropan) 5 mg DAILY PO Last administered on 04/21/17at 08: 32; Start 04/17/17 at 09:00 Oxycodone HCl (Roxicodone) 5 mg QID PO Last administered on 04/21/17 16:57; Start 04/17/17 at 09:00 Potassium Chloride (Klor-Con) 20 meq DAILY PO Last administered on 04/21/17 08 :32; Start 04/17/17 at 09:00 Sennosides (Senna) 17.2 mg QHS PO Last administered on 04/21/17 20:19; Start 04/17/17 at 21:00 Sucralfate (Carafate) 1 gm QID PO Last administered on 04/21/17 20:24; Start 04/17/17 at 09:00 Artificial Tears (Artificial Tears) 1 drop PRN QID PRN OS DRY EYE; Start at 08:00; Stop 04/17/17 at 14:31; Status DC Vitamin D (Vitamin D3) 50,000 unit QTH PO Last administered on 04/21/17 16:56 ; Start 04/21/17 at 16:00 Multivitamins/ Calcium (Thera-M Plus) 1 tab DAILY PO Last administered on 08:32; Start 04/17/17 at 09:00 Artificial Tears (Artificial Tears) 1 drop PRN QID PRN OS DRY EYE Last administered on 04/17/17 17:33; Start 04/17/17 at 14:31 Fentanyl (Duragesic 25mcg/ Hr) 1 patch Q72H TD Last administered on 04/21/17 08:36; Start 04/18/17 at 09:00 Risperidone (RisperDAL) 0.5 mg QHS PO Last administered on 04/18/17 20:35; Start 04/18/17 at 21:00; Stop 04/19/17 at 19:21; Status DC Trazodone HCl (Desyrel) 50 mg QHS PO Last administered on 04/21/17 20:20; Start 04/18/17 at 21:00 Trazodone HCl (Desyrel) 50 mg PRN QHS PRN PO INSOMNIA, MAY REPEAT IN 1HR; Start 04/18/17 at 18:45 Risperidone (RisperDAL) 0.75 mg QHS PO Last administered on 04/21/17 20:21; Start 04/19/17 at 21:00 Al Hydroxide/Mg Hydroxide (Mylanta Plus Xs) 30 ml PRN AFTMEAL PRN PO DYSPEPSIA Last administered on 04/20/17at 18:08; Start 04/20/17 at 18:00 Lactobacillus Rhamnosus (Culturelle) 1 cap BID PO Last administered on at 20:20; Start 04/21/17 at 09:00 Active Scripts Active Reported Senna (Sennosides) 8.6 Mg Tablet 17.2 Mg PO QHS Pro-Stat Liquid (Amino Acids/Protein Hydrolys) 887 Ml Liquid 60 Ml PO BID Klor-Con M20 (Potassium Chloride) 20 Meq Tab.er.prt 20 Meq PO DAILY Plavix (Clopidogrel Bisulfate) 75 Mg Tablet 75 Mg PO DAILY Oxycodone Hcl 5 Mg Tablet 5 Mg PO QID Oxycodone Hcl 10 Mg Tablet 10 Mg PO PRN Q4HRS PRN Oxybutynin Chloride 5 Mg Tablet 5 Mg PO DAILY Milk Of Magnesia (Magnesium Hydroxide) 400 Mg/5 Ml Oral.susp 2,400 Mg PO PRN Q24HRS PRN Antifungal Cream (Miconazole Nitrate) 14 Gm Cream..g. 1 Silver TP PRN QID PRN Metoprolol Succinate ( Xl ) (Metoprolol Succinate) 25 Mg Tab.er.24h 12.5 Mg PO DAILY Lasix (Furosemide) 40 Mg Tablet 40 Mg PO PRN DAILY PRN Hydroxyzine Pamoate 25 Mg Capsule 25 Mg PO QHS FENTANYL 25mcg/hr (Fentanyl) 1 Each Patch.td72 1 Patch TD Q72H Famotidine 20 Mg Tablet 20 Mg PO BID Escitalopram Oxalate 10 Mg Tablet 10 Mg PO DAILY Vitamin D2 (Ergocalciferol (Vitamin D2)) 50,000 Unit Capsule 50,000 Unit PO QTH Duoneb 0.5-3(2.5) Mg/3 Ml (Albuterol/Ipratropium) 3 Ml Ampul.neb 3 Ml NEB PRN Q6HRS PRN Digoxin 125 Mcg Tablet 125 Mcg PO DAILY Restore Tears (Carboxymethylcellulose Sodium) 30 Ml Drops 1 Drop LEFTEYE PRN QID PRN Carafate (Sucralfate) 1 Gm Tablet 1 Gm PO QID Venelex Ointment (Balsam [place] Oil) 60 Gm Oint...g. 1 Silver TP PRN QID PRN Aspir-Low (Aspirin) 81 Mg Tablet. 81 Mg PO DAILY Abilify (Aripiprazole) 5 Mg Tablet 5 Mg PO DAILY Ambien Cr (Zolpidem Tartrate) 12.5 Mg Tab.mphase 12.5 Mg PO QHS PRN Proair Hfa Inhaler (Albuterol Sulfate) 8.5 Gm Hfa.aer.ad 2 Puff INH PRN Q6HRS PRN Tylenol (Acetaminophen) 325 Mg Tablet 325 Mg PO PRN Q4HRS PRN MDD 3000mg Lorazepam 0.5 Mg Tablet 0.5 Mg PO PRN Q12HR PRN Multiple Vitamin (Multivitamin With Minerals) 1 Each Tablet 1 Tab PO DAILY Depakote (Divalproex Sodium) 500 Mg Tablet. 1,000 Mg PO QHS I have reviewed the current psychotropics carefully including drug interactions. Risk benefit ratio favors no change other than as noted in my dictated progress note. Diagnosis: Problems: (1) Anxiety disorder (2) Psychotic depression (3) Major depressive disorder, recurrent episode (4) Mild cognitive impairment (5) Major depression LEON PARHAM MD Apr 21, 2017 20:26
[2017-04-21 20:47] VITALS: BP 106/62
--- NOTE | 2017-04-22 00:27 | PN ---
DATE: 04/20/2017 This is a late entry for 04/20/2017 covers elements not covered in my initial note of 04/20/2017. SUBJECTIVE: I met with the patient in the evening of 04/20/2017. She has had no active hallucinations, isolates to her room, spends a lot of time in bed, compliant with medications. REVIEW OF SYSTEMS: Poor vision, ambulation impaired, in wheelchair. No CV, , pulmonary system symptoms on review. MENTAL STATUS EXAM: Oriented to herself and situation. Speech coherent, abstraction fair, computation impaired. Mood and affect still depressed, less psychotic. LABORATORY DATA: Reviewed. IMPRESSION: Unchanged from initial note. PLAN: Continue psychotropics mentioned in my initial note. Valproic acid level therapeutic at 70. MAN Haley PARHAM MD DR: MELINDA/brandon JOB#: [id number] / [id number]
[2017-04-22] MEDS ORDERED: CEPH500T PO (00:28)
[2017-04-22] MEDS ORDERED: CHOL500021 PO ×3 (00:29→00:36)
[2017-04-22] MEDS ORDERED: RISP0.5T24 PO (00:32)
[2017-04-22] MEDS ORDERED: CITA20TA5 PO (00:32)
[2017-04-22] MEDS ORDERED: TRAZ50TA15 PO ×2 (00:33)
[2017-04-22 06:00] VITALS: BP 118/74
[2017-04-22] MEDS: POTASSIUM CHLORIDE 20 MEQ TABLET.ER. PO SCH (09:33)
[2017-04-22] MEDS: MAGNESIUM OXIDE 400 MG TABLET PO SCH (09:33)
[2017-04-22] MEDS: CLOPIDOGREL BISULFATE 75 MG TABLET PO SCH (09:33)
[2017-04-22] MEDS: OXYBUTYNIN CHLORIDE 5 MG TABLET PO SCH (09:34)
[2017-04-22] MEDS: CITALOPRAM 20 MG TABLET. PO SCH (09:34)
[2017-04-22] MEDS: SUCRALFATE 1 GM TABLET. PO SCH ×3 (09:34→17:00)
[2017-04-22] MEDS: MULTIVITAMIN with MINERAL TABLET. PO SCH (09:34)
[2017-04-22] MEDS: LACTOBACILLUS RHAMNOSUS GG 1 CAPSULE. PO SCH (09:34)
[2017-04-22] MEDS: DIGOXIN 125 MCG TABLET PO SCH (09:34)
[2017-04-22] MEDS: FAMOTIDINE 20 MG TABLET PO SCH (09:35)
[2017-04-22] MEDS: NICOTINE 14MG PATCH. TD SCH (09:35)
[2017-04-22] MEDS: ASPIRIN ENTERIC COATED 81 MG TABLET.DR. PO SCH (09:37)
[2017-04-22] MEDS: oxyCODONE IR 5 MG TABLET PO SCH ×3 (09:41→15:47)
[2017-04-22] MEDS ORDERED: LACT1CAP19 PO (11:27)
[2017-04-22] MEDS ORDERED: MAG355OR98 PO (11:29)
[2017-04-22] MEDS ORDERED: MAGN400T3 PO (11:30)
[2017-04-22] MEDS ORDERED: NICO1PAT25 TP (11:31)
[2017-04-22] MEDS ORDERED: POLY15DR27 OS (11:32)
[2017-04-22 15:57] VITALS: BP 100/74
--- NOTE | 2017-04-23 20:39 | DS ---
DATE OF DISCHARGE: 04/22/2017 DISCHARGE SUMMARY/PSYCHIATRIC PROGRESS NOTE This late entry, date of service 04/22/2017 covers elements not covered in my initial note 04/22/2017. REASON FOR ADMISSION: Please refer to the admission history for details. Briefly, the patient is a 61-year-old female referred to us from [facility] on account of worsening symptoms of depression, severe anxiety, and a past diagnosis of bipolar disorder. The patient has been hallucinating, seeing snakes and bugs in her bed, thought the oxygen tubing was a snake, delusional, thinking another residents stole her wallet. She was combative with staff stating "I will kick your ass if you do not get the hell out of my room." Behaviors were deemed dangerous, out of control, unmanageable at the facility resulting in this referral. SIGNIFICANT FINDINGS AND CLINICAL COURSE: Following admission, the patient was seen daily individually by myself, followed medically per Dr. Andrews/Dr. Lujan. She was quite paranoid, delusional. Adjustments were made in her psychotropics. She seemed to respond to a combination of Risperdal 0.75 mg at bedtime, Depakote ER 1000 mg at bedtime with a therapeutic level of 70, Celexa 20 mg a day, hydroxyzine 25 mg at bedtime, Ambien p.r.n., Ativan p.r.n., trazodone 50 mg at bedtime, may repeat x 1 for insomnia. REVIEW OF SYSTEMS: Prior to discharge on 04/22/2017. ambulation impaired, in wheelchair. No CV, , pulmonary, eye system symptoms on review. Has poor vision. MENTAL STATUS EXAM: Oriented to herself and situation. Speech has some latency, coherent. Abstraction fair, computation impaired, language function intact. Mood and affect is improved. LABORATORY DATA: Reviewed. FINAL DIAGNOSES: Bipolar 1 disorder, mixed with psychotic features, in partial remission, major depressive disorder, recurrent with psychotic features, in partial remission; cognitive disorder, unspecified anxiety disorder, unspecified, rest unchanged from admission. DISCHARGE MEDICATIONS: Please refer to the EMRAD. DISCHARGE INSTRUCTIONS: [facility]. Time for discharge day management greater than 30 minutes. MAN Haley PARHAM MD DR: MELINDA/brandon JOB#: [id number] / [id number]
--- NOTE | 2017-04-23 22:56 | PN ---
DATE: 04/21/2017 This is a late entry for 04/21/2017 and covers elements not covered in my initial note of 04/21/2017. SUBJECTIVE: The patient staffed at a treatment team meeting with the entire team morning of 04/21/2017, seen individually in the evening. Reviewed her history at length. The patient is somewhat drowsy, withdrawn, in the evening time BP was slightly low, slept through the night reasonably. REVIEW OF SYSTEMS: Ambulation impaired, in wheelchair. No CV, , pulmonary, eye system symptoms on review. Vision is poor. MENTAL STATUS EXAM: Reasonably oriented. Speech is coherent, has some latency. Abstraction fair, computation impaired, language function intact. She is less psychotic. LABORATORY DATA: Reviewed. IMPRESSION: Unchanged from initial note. PLAN: Continue current psychotropics, Risperdal, Depakote, Celexa, along with Ambien, hydroxyzine and trazodone. LEON PARHAM MD DR: MELINDA/brandon JOB#: [id number] / [id number]
== END 2017-04-22 18:10 | disposition home or self-care (01) | DRG 885 ==
LOC: ER 20:57 → GEROPSY 04-17 05:27
PROVIDERS: ADMIT Psychiatry & Neurology Psychiatry; ATTEND Psychiatry & Neurology Psychiatry
DX: F31.64 Bipolar disorder, current episode mixed, severe, with psychotic features (principal); E43 Unspecified severe protein-calorie malnutrition; J96.11 Chronic respiratory failure with hypoxia; I42.0 Dilated cardiomyopathy; F03.90 Unspecified dementia, unspecified severity, without behavioral disturbance, psychotic disturbance, mood disturbance, and anxiety; E83.42 Hypomagnesemia; G62.9 Polyneuropathy, unspecified; N39.0 Urinary tract infection, site not specified; I48.0 Paroxysmal atrial fibrillation; G40.909 Epilepsy, unspecified, not intractable, without status epilepticus; N32.81 Overactive bladder; G89.29 Other chronic pain; F60.9 Personality disorder, unspecified; F41.9 Anxiety disorder, unspecified; F63.9 Impulse disorder, unspecified; E87.6 Hypokalemia; M62.81 Muscle weakness (generalized); G47.00 Insomnia, unspecified; Z66 Do not resuscitate; Z88.2 Allergy status to sulfonamides; Z88.8 Allergy status to other drugs, medicaments and biological substances; Z87.01 Personal history of pneumonia (recurrent); Z68.25 Body mass index [BMI] 25.0-25.9, adult; Z86.14 Personal history of Methicillin resistant Staphylococcus aureus infection; Z91.81 History of falling
CPT/HCPCS: 36415; 70450; 71045; 72125; 72170; 80048; 80053; 80061; 80076; 80164; 80307; 81001; 82306; 82553; 82607; 83036; 83540; 83550; 83690; 83735; 83880; 84436; 84443; 84480; 84484; 85025; 85379; 85610; 85730; 86593; 87086; 87804; 93005; 96365; 99406; J0696; Q0177; 99285-25; G0479; J7030